=== PATIENT | male | born 1995 | race Hispanic/Latino ===

== ENCOUNTER 2022-10-18 18:50 | Emergency (ER) | payer MEDICAID ==
[~2022-10-18] VITALS: Ht 188 cm; Wt 74.4 kg
[2022-10-18] MEDS ORDERED: IBUPROFEN 600 MG TABLET PO ONE (19:30)
[2022-10-18] MEDS ORDERED: IBUP-2070 PO (20:54)
[2022-10-18] MEDS ORDERED: CYCL10TA16 PO (20:54)
[2022-10-18 21:30] VITALS: BP 128/74
== END 2022-10-18 21:39 | disposition home or self-care (01) ==
LOC: EDH 18:50
DX: R07.89 Other chest pain (principal); J45.909 Unspecified asthma, uncomplicated; F32.A Depression, unspecified
CPT/HCPCS: 71100

== ENCOUNTER 2022-11-14 23:11 | Emergency (ER) | payer MEDICAID ==
[~2022-11-14] VITALS: Ht 188 cm; Wt 74.8 kg
[~2022-11-14 23:11] MED LIST: CYCL10TA16 PO; IBUP-2070 PO
[2022-11-14 23:55] LABS: BASOPHILS % (AUTO) 0.3 % (0.0-5.0); EOSINOPHILS % (AUTO) 0.8 % (0.0-8.0); HEMATOCRIT 37.1 % (42-54); LYMPHOCYTES % (AUTO) 18.9 % (21.0-51.0); MEAN CORPUSCULAR HGB CONC 33.7 g/dL (32.0-36.0); MEAN CORPUSCULAR VOLUME 89.2 fL (79-99); MONOCYTES % (AUTO) 9.3 % (3.0-13.0); NEUTROPHILS % (AUTO) 70.5 % (40.0-77.0); PLATELET COUNT (AUTO) 166 K/uL (130-400); RED BLOOD CELL COUNT(AUTO) 4.16 MIL/uL (4.50-6.20); RED CELL DISTRIBUTION WIDTH 12.2 % (11.0-15.5); WHITE BLOOD COUNT (AUTO) 5.9 K/uL (4.8-10.8)
[2022-11-15] MEDS ORDERED: ACETAMINOPHEN 325 MG TAB PO ONE
[2022-11-15 00:09] LABS: CREATININE 0.8 mg/dL (0.5-1.5); POTASSIUM 3.5 mmol/L (3.5-5.1)
[2022-11-15 00:14] LABS: ALBUMIN 3.7 g/dL (3.5-5.0); TOTAL PROTEIN, SERUM 7.1 g/dL (6.0-8.3)
[2022-11-15] MEDS ORDERED: 0.9%NACL 1000ML 2,000 ML IV ONE (01:00)
[2022-11-15 06:00] VITALS: BP 132/69
== END 2022-11-15 06:17 | disposition home or self-care (01) ==
LOC: EDH 23:11
DX: R42 Dizziness and giddiness (principal); E86.0 Dehydration; F41.9 Anxiety disorder, unspecified; J45.909 Unspecified asthma, uncomplicated; Z20.822 Contact with and (suspected) exposure to COVID-19
CPT/HCPCS: 99284; 71045; 87635; 82550; 84484; 80053; 85025; 85378; 87804 ×2; 36415 ×2; 96360; C9803; J7030

== ENCOUNTER 2022-11-17 02:24 | Emergency (ER) | payer MEDICAID ==
[2022-11-17 03:22] LABS: APPEARANCE,URINE CLEAR (CLEAR); BILIRUBIN,URINE NEGATIVE (NEGATIVE); COLOR,URINE COLORLESS (YELLOW); GLUCOSE, URINE (UA) NEGATIVE (NEGATIVE); KETONES,URINE NEGATIVE (NEGATIVE); LEUKOCYTE ESTERASE ,URINE NEGATIVE Leu/uL (NEGATIVE); NITRATE,URINE NEGATIVE (NEGATIVE); OCCULT BLOOD,URINE NEGATIVE (NEGATIVE); PROTEIN,URINE NEGATIVE (NEGATIVE); UROBILINOGEN,URINE 0.2 mg/dL (0.2-1.0)
[2022-11-17 03:23] LABS: CARBON DIOXIDE 30 mmol/L (21-32); CHLORIDE 105 mmol/L (101-111); CREATININE 0.9 mg/dL (0.5-1.5); GLOMERULAR FILTR. RATE CALC 122 mL/min (>90); GLUCOSE,RANDOM 90 mg/dL (70-105); POTASSIUM 3.8 mmol/L (3.5-5.1); SODIUM SERUM 142 mmol/L (136-145); UREA NITROGEN, BLOOD 8 mg/dL (7-18)
[2022-11-17 03:24] LABS: BASOPHILS % (AUTO) 1.1 % (0.0-5.0); EOSINOPHILS % (AUTO) 3.7 % (0.0-8.0); HEMATOCRIT 36.2 % (42-54); LYMPHOCYTES % (AUTO) 31.3 % (21.0-51.0); MEAN CORPUSCULAR HGB CONC 33.7 g/dL (32.0-36.0); MEAN CORPUSCULAR VOLUME 88.9 fL (79-99); MONOCYTES % (AUTO) 9.4 % (3.0-13.0); NEUTROPHILS % (AUTO) 54.2 % (40.0-77.0); PLATELET COUNT (AUTO) 166 K/uL (130-400); RED BLOOD CELL COUNT(AUTO) 4.07 MIL/uL (4.50-6.20); RED CELL DISTRIBUTION WIDTH 12.2 % (11.0-15.5); WHITE BLOOD COUNT (AUTO) 3.5 K/uL (4.8-10.8)
[2022-11-17 03:27] LABS: ALANINE AMINOTRANSFERASE 21 U/L (12-78); ALBUMIN 3.4 g/dL (3.5-5.0); ASPARTATE AMINOTRANSFERASE 10 U/L (10-37); TOTAL PROTEIN, SERUM 6.6 g/dL (6.0-8.3)
[2022-11-17 03:31] LABS: AMPHET/METH SCREEN,URINE NEGATIVE (NEGATIVE); BARBITURATE SCREEN, URINE NEGATIVE (NEGATIVE); BENZODIAZEPINES SCREEN,URINE NEGATIVE (NEGATIVE); CANNABINOID SCREEN,URINE NEGATIVE (NEGATIVE); COCAINE SCREEN,URINE NEGATIVE (NEGATIVE); OPIATE SCREEN,URINE NEGATIVE (NEGATIVE); PHENCYCLIDINE SCREEN,URINE NEGATIVE (NEGATIVE)
[2022-11-17 03:38] LABS: WBC,URINE 0-1 /HPF (0-1)
[2022-11-17 03:50] LABS: INR 1.02 (0.85-1.15); PROTHROMBIN TIME 11.8 SEC (9.6-11.6)
[2022-11-17 03:51] LABS: PARTIAL THROMBOPLASTIN TIME 31.6 SEC (26.3-35.5)
[2022-11-17 06:24] VITALS: BP 123/88
== END 2022-11-17 06:31 | disposition home or self-care (01) ==
LOC: EDH 02:24
DX: R42 Dizziness and giddiness (principal); F41.9 Anxiety disorder, unspecified; J45.909 Unspecified asthma, uncomplicated; F32.A Depression, unspecified
CPT/HCPCS: 36415; 70450; 80053; 80305; 81001; 85025; 85610; 85730

== ENCOUNTER 2022-11-21 21:46 | Emergency (ER) | payer MEDICAID ==
[~2022-11-21] VITALS: Ht 185.4 cm; Wt 79.4 kg
[2022-11-21 23:53] VITALS: BP 115/62
[2022-11-22] MEDS ORDERED: METOCLOPRAMIDE 10 MG TABLET PO ONE
[2022-11-22] MEDS ORDERED: PANTOPRAZOLE 40 MG TAB DR PO SCH
[2022-11-22] MEDS ORDERED: METO10TA41 PO (00:01)
[2022-11-22] MEDS ORDERED: PANT40TA55 PO (00:01)
[2022-11-22] MEDS ORDERED: METOCLOPRAMIDE 10 MG TABLET ONE (00:06)
[2022-11-22] MEDS ORDERED: PANTOPRAZOLE 40 MG TAB DR ONE (00:06)
== END 2022-11-22 00:09 | disposition home or self-care (01) ==
LOC: EDH 21:46
DX: K29.70 Gastritis, unspecified, without bleeding (principal); J45.909 Unspecified asthma, uncomplicated; F32.A Depression, unspecified; F41.9 Anxiety disorder, unspecified; Z20.822 Contact with and (suspected) exposure to COVID-19
CPT/HCPCS: 99283; 87635; 87804 ×2; C9803

== ENCOUNTER 2022-11-25 12:07 | Emergency (ER) | payer MEDICAID ==
[~2022-11-25] VITALS: Ht 188 cm; Wt 71.7 kg
[~2022-11-25 12:07] MED LIST changes: +METO10TA41 PO; +PANT40TA55 PO
[2022-11-25 12:08] VITALS: BP 123/91
[2022-11-25 12:43] LABS: BASOPHILS % (AUTO) 0.7 % (0.0-5.0); EOSINOPHILS % (AUTO) 0.8 % (0.0-8.0); HEMATOCRIT 40.2 % (42-54); LYMPHOCYTES % (AUTO) 21.1 % (21.0-51.0); MEAN CORPUSCULAR HEMOGLOBIN 30.1 pg (27.0-33.0); MEAN CORPUSCULAR HGB CONC 33.8 g/dL (32.0-36.0); MEAN CORPUSCULAR VOLUME 88.9 fL (79-99); MONOCYTES % (AUTO) 6.4 % (3.0-13.0); NEUTROPHILS % (AUTO) 70.2 % (40.0-77.0); PLATELET COUNT (AUTO) 181 K/uL (130-400); RED BLOOD CELL COUNT(AUTO) 4.52 MIL/uL (4.50-6.20); RED CELL DISTRIBUTION WIDTH 12.2 % (11.0-15.5); WHITE BLOOD COUNT (AUTO) 6.1 K/uL (4.8-10.8)
[2022-11-25 12:55] LABS: CREATININE 0.8 mg/dL (0.5-1.5); POTASSIUM 4.1 mmol/L (3.5-5.1)
[2022-11-25 13:00] LABS: ALBUMIN 3.9 g/dL (3.5-5.0); TOTAL PROTEIN, SERUM 7.2 g/dL (6.0-8.3)
[2022-11-25 13:22] LABS: APPEARANCE,URINE CLEAR (CLEAR); BILIRUBIN,URINE NEGATIVE (NEGATIVE); COLOR,URINE COLORLESS (YELLOW); GLUCOSE, URINE (UA) NEGATIVE (NEGATIVE); KETONES,URINE NEGATIVE (NEGATIVE); LEUKOCYTE ESTERASE ,URINE NEGATIVE Leu/uL (NEGATIVE); NITRATE,URINE NEGATIVE (NEGATIVE); OCCULT BLOOD,URINE NEGATIVE (NEGATIVE); PROTEIN,URINE NEGATIVE (NEGATIVE); UROBILINOGEN,URINE 0.2 mg/dL (0.2-1.0)
[2022-11-25] MEDS ORDERED: ONDA4TAB10 PO (13:42)
[2022-12-02] MEDS ORDERED: ONDA4TAB10 PO (05:32)
== END 2022-11-25 14:03 | disposition home or self-care (01) ==
LOC: EDH 12:07
DX: R11.2 Nausea with vomiting, unspecified (principal); T45.0X5A Adverse effect of antiallergic and antiemetic drugs, initial encounter; J45.909 Unspecified asthma, uncomplicated; Y92.89 Other specified places as the place of occurrence of the external cause
CPT/HCPCS: 36415; 80053; 81003; 85025

== ENCOUNTER 2022-12-04 14:13 | Emergency (ER) | payer MEDICAID ==
[~2022-12-04] VITALS: Ht 180.3 cm; Wt 83.9 kg
[~2022-12-04 14:13] MED LIST changes: +ONDA4TAB10 PO
[2022-12-04 14:56] LABS: APPEARANCE,URINE CLEAR (CLEAR); BILIRUBIN,URINE NEGATIVE (NEGATIVE); COLOR,URINE LIGHT-YELLOW (YELLOW); GLUCOSE, URINE (UA) NEGATIVE (NEGATIVE); KETONES,URINE NEGATIVE (NEGATIVE); LEUKOCYTE ESTERASE ,URINE NEGATIVE Leu/uL (NEGATIVE); NITRATE,URINE NEGATIVE (NEGATIVE); OCCULT BLOOD,URINE NEGATIVE (NEGATIVE); PROTEIN,URINE NEGATIVE (NEGATIVE); UROBILINOGEN,URINE 0.2 mg/dL (0.2-1.0)
[2022-12-04 15:02] LABS: AMPHET/METH SCREEN,URINE NEGATIVE (NEGATIVE); BARBITURATE SCREEN, URINE NEGATIVE (NEGATIVE); BENZODIAZEPINES SCREEN,URINE NEGATIVE (NEGATIVE); CANNABINOID SCREEN,URINE NEGATIVE (NEGATIVE); COCAINE SCREEN,URINE NEGATIVE (NEGATIVE); MUCUS,URINE RARE LPF (None Seen); OPIATE SCREEN,URINE NEGATIVE (NEGATIVE); PHENCYCLIDINE SCREEN,URINE NEGATIVE (NEGATIVE); RBC,URINE 0-1 /HPF (0-1)
[2022-12-04 15:22] LABS: BASOPHILS % (AUTO) 0.5 % (0.0-5.0); EOSINOPHILS % (AUTO) 0.4 % (0.0-8.0); HEMATOCRIT 40.9 % (42-54); LYMPHOCYTES % (AUTO) 14.4 % (21.0-51.0); MEAN CORPUSCULAR HEMOGLOBIN 29.9 pg (27.0-33.0); MEAN CORPUSCULAR HGB CONC 32.8 g/dL (32.0-36.0); MEAN CORPUSCULAR VOLUME 91.3 fL (79-99); MONOCYTES % (AUTO) 5.3 % (3.0-13.0); NEUTROPHILS % (AUTO) 79.1 % (40.0-77.0); PLATELET COUNT (AUTO) 178 K/uL (130-400); RED BLOOD CELL COUNT(AUTO) 4.48 MIL/uL (4.50-6.20); WHITE BLOOD COUNT (AUTO) 7.8 K/uL (4.8-10.8)
[2022-12-04 15:32] LABS: CARBON DIOXIDE 30 mmol/L (21-32); CHLORIDE 107 mmol/L (101-111); CREATININE 0.9 mg/dL (0.5-1.5); GLOMERULAR FILTR. RATE CALC 122 mL/min (>90); GLUCOSE,RANDOM 93 mg/dL (70-105); POTASSIUM 4.1 mmol/L (3.5-5.1); SODIUM SERUM 144 mmol/L (136-145); UREA NITROGEN, BLOOD 10 mg/dL (7-18)
[2022-12-04 15:36] LABS: ALANINE AMINOTRANSFERASE 19 U/L (12-78); ASPARTATE AMINOTRANSFERASE 12 U/L (10-37); LIPASE < 50 U/L (114-286); TOTAL PROTEIN, SERUM 7.2 g/dL (6.0-8.3)
[2022-12-04] MEDS ORDERED: ONDA4TAB10 PO (18:31)
[2022-12-04 18:40] VITALS: BP 128/74
== END 2022-12-04 18:44 | disposition home or self-care (01) ==
LOC: EDH 14:13
DX: R10.13 Epigastric pain (principal); R11.0 Nausea; F41.9 Anxiety disorder, unspecified; F32.A Depression, unspecified; J45.909 Unspecified asthma, uncomplicated; Z79.899 Other long term (current) drug therapy
CPT/HCPCS: 36415; 80053; 80305; 81001; 83690; 85025

== ENCOUNTER 2022-12-13 19:21 | Emergency (ER) | payer MEDICAID ==
[~2022-12-13] VITALS: Ht 182.9 cm; Wt 75.3 kg
[~2022-12-13 19:21] MED LIST changes: +D-ME118S47 PO
[2022-12-13 20:28] VITALS: BP 132/72; PULSE 71; RESP 20
[2022-12-13] MEDS ORDERED: NAPR-1180 PO (21:22)
[2022-12-13] MEDS ORDERED: KETOROLAC 15MG/ML VIAL (15MG/ML) IM ONE (21:30)
[2022-12-14] MEDS ORDERED: CYCL5TAB PO (00:49)
== END 2022-12-13 23:20 | disposition home or self-care (01) ==
LOC: EDH 19:21
DX: S39.012A Strain of muscle, fascia and tendon of lower back, initial encounter (principal); F41.9 Anxiety disorder, unspecified; F32.A Depression, unspecified; J45.909 Unspecified asthma, uncomplicated; X58.XXXA Exposure to other specified factors, initial encounter; Y93.89 Activity, other specified; Y92.89 Other specified places as the place of occurrence of the external cause; Y99.8 Other external cause status; Z79.899 Other long term (current) drug therapy
CPT/HCPCS: 99283; 96372; J1885

== ENCOUNTER 2022-12-16 10:46 | Emergency (ER) | payer MEDICAID ==
[~2022-12-16] VITALS: Ht 185.4 cm; Wt 75.7 kg
[~2022-12-16 10:46] MED LIST changes: +CYCL5TAB PO; +NAPR-1180 PO
[2022-12-16] MEDS ORDERED: IBUPROFEN 600 MG TABLET PO ONE (11:30)
[2022-12-16 12:42] VITALS: BP 122/78; PULSE 78; RESP 18; O2SAT 98
== END 2022-12-16 12:44 | disposition home or self-care (01) ==
LOC: EDH 10:46
DX: S62.306A Unspecified fracture of fifth metacarpal bone, right hand, initial encounter for closed fracture (principal); F17.200 Nicotine dependence, unspecified, uncomplicated; Z79.899 Other long term (current) drug therapy; X58.XXXA Exposure to other specified factors, initial encounter; Y93.89 Activity, other specified; Y92.89 Other specified places as the place of occurrence of the external cause; Y99.8 Other external cause status
CPT/HCPCS: 73120

== ENCOUNTER 2022-12-20 21:15 | Emergency (ER) | payer MEDICAID ==
[~2022-12-20] VITALS: Ht 185.4 cm; Wt 75.3 kg
[2022-12-20 22:49] VITALS: BP 113/65; PULSE 62; RESP 20
== END 2022-12-21 04:46 | disposition left against medical advice (07) ==
LOC: EDH 21:15
DX: R53.1 Weakness (principal); R11.2 Nausea with vomiting, unspecified; R05.9 Cough, unspecified; Z53.21 Procedure and treatment not carried out due to patient leaving prior to being seen by health care provider
CPT/HCPCS: 99281

== ENCOUNTER 2022-12-26 18:41 | Emergency (ER) | payer MEDICAID ==
[~2022-12-26] VITALS: Ht 177.8 cm; Wt 79.4 kg
[2022-12-26 18:43] VITALS: BP 132/76; PULSE 80; RESP 16
[2022-12-26] MEDS ORDERED: 0.9%NACL 1000ML 2,000 ML IV ONE (20:00)
[2022-12-26] MEDS ORDERED: ONDANSETRON 4MG INJ IVP ONE (20:00)
[2022-12-26 20:12] LABS: BASOPHILS # (AUTO) 0.07 K/uL (0.00-0.20); BASOPHILS % (AUTO) 0.8 % (0.0-5.0); EOSINOPHILS # (AUTO) 0.03 K/uL (0.00-0.70); EOSINOPHILS % (AUTO) 0.3 % (0.0-8.0); HEMATOCRIT 45.9 % (42-54); IMMATURE GRANULOCYTE ABSOLUTE 0.03 K/uL (0-1); LYMPHOCYTES # (AUTO) 1.7 K/uL (1.0-4.8); LYMPHOCYTES % (AUTO) 18.9 % (21.0-51.0); MEAN CORPUSCULAR HEMOGLOBIN 30.1 pg (27.0-33.0); MEAN CORPUSCULAR VOLUME 88.4 fL (79-99); MONOCYTES # (AUTO) 0.7 K/uL (0.1-1.0); MONOCYTES % (AUTO) 7.7 % (3.0-13.0); NEUTROPHILS # (AUTO) 6.4 K/uL (1.8-7.7); PLATELET COUNT (AUTO) 210 K/uL (130-400); RED BLOOD CELL COUNT(AUTO) 5.19 MIL/uL (4.50-6.20); RED CELL DISTRIBUTION WIDTH 12.5 % (11.0-15.5); WHITE BLOOD COUNT (AUTO) 8.9 K/uL (4.8-10.8)
[2022-12-26 20:19] LABS: APPEARANCE,URINE CLEAR (CLEAR); BILIRUBIN,URINE NEGATIVE (NEGATIVE); COLOR,URINE YELLOW (YELLOW); GLUCOSE, URINE (UA) NEGATIVE (NEGATIVE); KETONES,URINE 5 mg/dL (NEGATIVE); LEUKOCYTE ESTERASE ,URINE NEGATIVE Leu/uL (NEGATIVE); NITRATE,URINE NEGATIVE (NEGATIVE); OCCULT BLOOD,URINE NEGATIVE (NEGATIVE); PH,URINE 5.5 (5.0-8.0); PROTEIN,URINE 50 mg/dL (NEGATIVE)
[2022-12-26 20:22] LABS: ADD UA MICROSCOPIC YES
[2022-12-26 20:35] LABS: POTASSIUM 3.9 mmol/L (3.5-5.1)
[2022-12-26 20:37] LABS: ALBUMIN 4.5 g/dL (3.5-5.0); BILIRUBIN,TOTAL 0.3 mg/dL (0.2-1.0); TOTAL PROTEIN, SERUM 8.2 g/dL (6.0-8.3)
[2022-12-26 20:50] LABS: BACTERIA,URINE FEW /HPF (None Seen); MUCUS,URINE MOD LPF (None Seen); RBC,URINE 0-1 /HPF (0-1); SQUAMOUS EPITHELIAL CELL,UR RARE /HPF (0-2)
== END 2022-12-26 21:08 | disposition home or self-care (01) ==
LOC: EDH 18:41
DX: R53.83 Other fatigue (principal); F41.9 Anxiety disorder, unspecified; F17.200 Nicotine dependence, unspecified, uncomplicated; Z79.899 Other long term (current) drug therapy; X30.XXXA Exposure to excessive natural heat, initial encounter; Y93.01 Activity, walking, marching and hiking; Y92.89 Other specified places as the place of occurrence of the external cause; Y99.8 Other external cause status
CPT/HCPCS: 99283; 96374; 96361; 80053; 83690; 85025; 81001; 36415; J7030; J2405

== ENCOUNTER 2023-01-17 23:06 | Emergency (ER) | payer MEDICAID ==
[~2023-01-17] VITALS: Ht 185.4 cm; Wt 79.4 kg
[2023-01-18 00:40] VITALS: BP 129/79; PULSE 87; RESP 18; O2SAT 98
[2023-01-18 00:48] LABS: RAPID GROUP A STREP negative (NEGATIVE)
[2023-01-18 00:54] LABS: SARS-CoV-2, RNA, NAAT NEGATIVE SARS CoV-2 (NEGATIVE)
[2023-01-18 00:58] LABS: INFLUENZA TYPE A Negative For Type A (NEGATIVE); INFLUENZA TYPE B Negative For Type B (NEGATIVE)
== END 2023-01-18 01:05 | disposition home or self-care (01) ==
LOC: EDH 23:06
DX: B34.9 Viral infection, unspecified (principal); J45.909 Unspecified asthma, uncomplicated; F32.A Depression, unspecified; F17.200 Nicotine dependence, unspecified, uncomplicated; Z79.899 Other long term (current) drug therapy; Z20.822 Contact with and (suspected) exposure to COVID-19
CPT/HCPCS: 99283; 87635; 87880; 87804 ×2; C9803

== ENCOUNTER 2023-05-07 15:24 | Emergency (ER) | payer MEDICAID ==
[~2023-05-07] VITALS: Ht 188 cm; Wt 84.4 kg
[~2023-05-07 15:24] MED LIST changes: +BROM118S48 PO; -D-ME118S47 PO
[2023-05-07 15:40] VITALS: BP 149/86; PULSE 95; RESP 18
[2023-05-07 16:09] LABS: RAPID GROUP A STREP negative (NEGATIVE)
[2023-05-07 16:14] LABS: SARS-CoV-2, RNA, NAAT NEGATIVE SARS CoV-2 (NEGATIVE)
[2023-05-07 16:19] LABS: INFLUENZA TYPE A Negative For Type A (NEGATIVE); INFLUENZA TYPE B Negative For Type B (NEGATIVE)
[2023-05-07] MEDS ORDERED: BROM118S48 PO (17:22)
[2023-05-07] MEDS ORDERED: AZIT250T9 PO (17:22)
== END 2023-05-07 17:33 | disposition home or self-care (01) ==
LOC: EDH 15:24
DX: J06.9 Acute upper respiratory infection, unspecified (principal); R09.3 Abnormal sputum; J45.909 Unspecified asthma, uncomplicated; F41.9 Anxiety disorder, unspecified; F32.A Depression, unspecified; F17.200 Nicotine dependence, unspecified, uncomplicated; Z20.822 Contact with and (suspected) exposure to COVID-19; Z79.899 Other long term (current) drug therapy; Z98.890 Other specified postprocedural states
CPT/HCPCS: 99283; 87635; 87880; 87804 ×2; C9803

== ENCOUNTER 2023-07-19 06:31 | Emergency (ER) | payer OTHER, MEDICAID ==
[~2023-07-19] VITALS: Ht 185.4 cm; Wt 95.3 kg
[~2023-07-19 06:31] MED LIST changes: +AZIT250T9 PO
[2023-07-19 08:13] VITALS: BP 129/88; PULSE 92; RESP 14; O2SAT 100
== END 2023-07-19 08:38 | disposition home or self-care (01) ==
LOC: EDH 06:31
DX: S29.012A Strain of muscle and tendon of back wall of thorax, initial encounter (principal); E11.9 Type 2 diabetes mellitus without complications; F17.200 Nicotine dependence, unspecified, uncomplicated; J45.909 Unspecified asthma, uncomplicated; Z79.899 Other long term (current) drug therapy; V89.2XXA Person injured in unspecified motor-vehicle accident, traffic, initial encounter; Y93.89 Activity, other specified; Y92.89 Other specified places as the place of occurrence of the external cause; Y99.8 Other external cause status

== ENCOUNTER 2023-08-02 18:29 | Emergency (ER) | payer MEDICAID, OTHER ==
[~2023-08-02] VITALS: Ht 185.4 cm; Wt 93.0 kg
[~2023-08-02 18:29] MED LIST changes: -BROM118S48 PO; +D-ME118S47 PO
[2023-08-02] MEDS ORDERED: CYCL5TAB PO (20:50)
[2023-08-02] MEDS ORDERED: LIDO1ADH71 TP (20:50)
[2023-08-02] MEDS ORDERED: NAPR-1023 PO (20:50)
[2023-08-02] MEDS: KETOROLAC 60 MG VIAL (30MG/ML) IM ONE (20:54)
[2023-08-02 21:30] VITALS: BP 136/88; PULSE 92; RESP 16; O2SAT 99
== END 2023-08-02 21:36 | disposition home or self-care (01) ==
LOC: EDH 18:29
DX: S39.012A Strain of muscle, fascia and tendon of lower back, initial encounter (principal); J45.909 Unspecified asthma, uncomplicated; Z79.899 Other long term (current) drug therapy; Z98.890 Other specified postprocedural states; X58.XXXA Exposure to other specified factors, initial encounter; Y93.89 Activity, other specified; Y92.89 Other specified places as the place of occurrence of the external cause; Y99.8 Other external cause status
CPT/HCPCS: 99283; 72100; 96372; J1885

== ENCOUNTER 2023-09-21 19:12 | Emergency (ER) | payer MEDICAID ==
[~2023-09-21 19:12] MED LIST changes: +BROM118S48 PO; -D-ME118S47 PO; +LIDO1ADH71 TP; +NAPR-1023 PO
[2023-09-21] MEDS ORDERED: DIPH50 PO (19:26)
[2023-09-21] MEDS ORDERED: ONDANSETRON 4MG INJ IVP ONE (19:30)
[2023-09-21] MEDS ORDERED: DiphenhydrAMINE HCL 50 MG/ML VIAL IV ONE (19:30)
[2023-09-21 19:50] VITALS: BP 137/85; PULSE 84; RESP 20; O2SAT 100
== END 2023-09-21 19:53 | disposition home or self-care (01) ==
LOC: EDH 19:12
DX: T63.441A Toxic effect of venom of bees, accidental (unintentional), initial encounter (principal); R11.0 Nausea; J45.909 Unspecified asthma, uncomplicated; F17.200 Nicotine dependence, unspecified, uncomplicated; Z79.899 Other long term (current) drug therapy

== ENCOUNTER 2023-10-11 23:16 | Emergency (ER) | payer MEDICAID ==
[~2023-10-11 23:16] MED LIST changes: +DIPH50 PO
[2023-10-11] MEDS: ONDANSETRON 4MG INJ IVP ONE (23:41)
[2023-10-11] MEDS: LACTATED RINGERS 1000ML 1,000 ML IV ONE (23:45)
[2023-10-11 23:51] LABS: BASOPHILS # (AUTO) 0.04 K/uL (0.00-0.20); BASOPHILS % (AUTO) 0.6 % (0.0-5.0); EOSINOPHILS # (AUTO) 0.14 K/uL (0.00-0.70); EOSINOPHILS % (AUTO) 2.2 % (0.0-8.0); HEMATOCRIT 40.2 % (42-54); IMMATURE GRANULOCYTE ABSOLUTE 0.02 K/uL (0-1); LYMPHOCYTES # (AUTO) 1.6 K/uL (1.0-4.8); LYMPHOCYTES % (AUTO) 25.4 % (21.0-51.0); MEAN CORPUSCULAR HGB CONC 34.3 g/dL (32.0-36.0); MEAN CORPUSCULAR VOLUME 87.4 fL (79-99); MONOCYTES # (AUTO) 0.6 K/uL (0.1-1.0); NEUTROPHILS # (AUTO) 3.9 K/uL (1.8-7.7); NEUTROPHILS % (AUTO) 61.5 % (40.0-77.0); PLATELET COUNT (AUTO) 180 K/uL (130-400); RED CELL DISTRIBUTION WIDTH 12.6 % (11.0-15.5); WHITE BLOOD COUNT (AUTO) 6.4 K/uL (4.8-10.8)
[2023-10-12 00:14] LABS: CREATININE 0.9 mg/dL (0.5-1.3)
[2023-10-12 00:18] LABS: ALBUMIN 3.7 g/dL (3.5-5.0); BILIRUBIN,TOTAL 0.2 mg/dL (0.2-1.0)
[2023-10-12] MEDS ORDERED: ONDA4TAB10 PO (00:37)
[2023-10-12 01:18] VITALS: BP 122/85; PULSE 84; RESP 18; O2SAT 98
== END 2023-10-12 01:21 | disposition home or self-care (01) ==
LOC: EDH 23:16
DX: R10.9 Unspecified abdominal pain (principal); M54.50 Low back pain, unspecified; R11.2 Nausea with vomiting, unspecified; J45.909 Unspecified asthma, uncomplicated; Z79.899 Other long term (current) drug therapy; Z98.890 Other specified postprocedural states
CPT/HCPCS: 99283; 96374; 80053; 83690; 85025; 36415; J7120; J2405

== ENCOUNTER 2023-10-24 13:49 | Emergency (ER) | payer MEDICAID ==
[~2023-10-24] VITALS: Ht 185.4 cm; Wt 95.7 kg
[~2023-10-24 13:49] MED LIST changes: +ONDA-243 PO; -ONDA4TAB10 PO
[2023-10-24 15:08] LABS: APPEARANCE,URINE CLEAR (CLEAR); BILIRUBIN,URINE NEGATIVE (NEGATIVE); COLOR,URINE LIGHT-YELLOW (YELLOW); GLUCOSE, URINE (UA) NEGATIVE (NEGATIVE); KETONES,URINE 5 mg/dL (NEGATIVE); LEUKOCYTE ESTERASE ,URINE NEGATIVE Leu/uL (NEGATIVE); NITRATE,URINE NEGATIVE (NEGATIVE); OCCULT BLOOD,URINE NEGATIVE (NEGATIVE); PROTEIN,URINE 10 mg/dL (NEGATIVE); UROBILINOGEN,URINE 0.2 mg/dL (0.2-1.0)
[2023-10-24 15:16] LABS: ADD UA MICROSCOPIC YES
[2023-10-24 15:19] LABS: MUCUS,URINE RARE LPF (None Seen); WBC,URINE 0-1 /HPF (0-1)
[2023-10-24] MEDS: LIDOCAINE HCL 2% VISCOUS 15 ML UDCUP PO ONE (15:53)
[2023-10-24] MEDS: DICYCLOMINE HCL 10 MG/5 ML ML PO ONE (15:53)
[2023-10-24] MEDS: MAG/ALUM/SIMETH 30 ML UDCUP PO ONE (15:53)
[2023-10-24 16:15] LABS: BASOPHILS # (AUTO) 0.04 K/uL (0.00-0.20); BASOPHILS % (AUTO) 0.7 % (0.0-5.0); EOSINOPHILS # (AUTO) 0.11 K/uL (0.00-0.70); EOSINOPHILS % (AUTO) 1.8 % (0.0-8.0); HEMATOCRIT 40.5 % (42-54); IMMATURE GRANULOCYTE ABSOLUTE 0.06 K/uL (0-1); LYMPHOCYTES # (AUTO) 1.6 K/uL (1.0-4.8); MEAN CORPUSCULAR HEMOGLOBIN 30.3 pg (27.0-33.0); MEAN CORPUSCULAR HGB CONC 34.8 g/dL (32.0-36.0); MEAN CORPUSCULAR VOLUME 86.9 fL (79-99); MONOCYTES # (AUTO) 0.5 K/uL (0.1-1.0); MONOCYTES % (AUTO) 7.9 % (3.0-13.0); NEUTROPHILS # (AUTO) 3.8 K/uL (1.8-7.7); NEUTROPHILS % (AUTO) 62.6 % (40.0-77.0); PLATELET COUNT (AUTO) 180 K/uL (130-400); RED BLOOD CELL COUNT(AUTO) 4.66 MIL/uL (4.50-6.20); RED CELL DISTRIBUTION WIDTH 12.3 % (11.0-15.5)
[2023-10-24 16:25] LABS: CREATININE 0.9 mg/dL (0.5-1.3); POTASSIUM 4.3 mmol/L (3.5-5.1)
[2023-10-24 16:29] LABS: ALBUMIN 3.6 g/dL (3.5-5.0); BILIRUBIN,TOTAL 0.2 mg/dL (0.2-1.0)
[2023-10-24] MEDS ORDERED: PANT20TA PO (17:53)
[2023-10-24 17:57] VITALS: BP 121/74; PULSE 85; RESP 18; O2SAT 98
== END 2023-10-24 18:02 | disposition home or self-care (01) ==
LOC: EDH 13:49
DX: K21.9 Gastro-esophageal reflux disease without esophagitis (principal)
CPT/HCPCS: 36415; 80053; 81001; 84484; 85025

== ENCOUNTER 2023-10-27 15:52 | Emergency (ER) | payer OTHER, MEDICAID ==
[~2023-10-27] VITALS: Ht 185.4 cm; Wt 95.3 kg
[~2023-10-27 15:52] MED LIST changes: +PANT20TA PO
[2023-10-27 17:09] LABS: BASOPHILS # (AUTO) 0.07 K/uL (0.00-0.20); BASOPHILS % (AUTO) 0.9 % (0.0-5.0); EOSINOPHILS # (AUTO) 0.08 K/uL (0.00-0.70); HEMATOCRIT 44.1 % (42-54); IMMATURE GRANULOCYTE ABSOLUTE 0.07 K/uL (0-1); LYMPHOCYTES # (AUTO) 1.5 K/uL (1.0-4.8); LYMPHOCYTES % (AUTO) 18.9 % (21.0-51.0); MEAN CORPUSCULAR HEMOGLOBIN 30.8 pg (27.0-33.0); MEAN CORPUSCULAR HGB CONC 34.2 g/dL (32.0-36.0); MEAN CORPUSCULAR VOLUME 89.8 fL (79-99); MONOCYTES # (AUTO) 0.7 K/uL (0.1-1.0); MONOCYTES % (AUTO) 9.2 % (3.0-13.0); NEUTROPHILS # (AUTO) 5.4 K/uL (1.8-7.7); NEUTROPHILS % (AUTO) 69.1 % (40.0-77.0); PLATELET COUNT (AUTO) 181 K/uL (130-400); RED BLOOD CELL COUNT(AUTO) 4.91 MIL/uL (4.50-6.20); RED CELL DISTRIBUTION WIDTH 12.1 % (11.0-15.5); WHITE BLOOD COUNT (AUTO) 7.8 K/uL (4.8-10.8)
[2023-10-27 17:33] LABS: POTASSIUM 4.6 mmol/L (3.5-5.1)
[2023-10-27 17:43] LABS: ALBUMIN 4.1 g/dL (3.5-5.0); BILIRUBIN,TOTAL 0.3 mg/dL (0.2-1.0); TOTAL PROTEIN, SERUM 7.7 g/dL (6.0-8.3)
[2023-10-27 19:10] VITALS: BP 142/73; PULSE 81; RESP 18; O2SAT 97
== END 2023-10-27 19:14 | disposition home or self-care (01) ==
LOC: EDH 15:52
DX: R07.89 Other chest pain (principal); F41.9 Anxiety disorder, unspecified
CPT/HCPCS: 36415; 71045; 80053; 84484; 85025; 93005

== ENCOUNTER 2023-11-16 17:41 | Emergency (ER) | payer OTHER, MEDICAID ==
[~2023-11-16] VITALS: Ht 185.4 cm; Wt 95.7 kg
[2023-11-16 18:15] LABS: BASOPHILS # (AUTO) 0.07 K/uL (0.00-0.20); BASOPHILS % (AUTO) 0.9 % (0.0-5.0); EOSINOPHILS # (AUTO) 0.15 K/uL (0.00-0.70); EOSINOPHILS % (AUTO) 1.9 % (0.0-8.0); HEMATOCRIT 42.2 % (42-54); IMMATURE GRANULOCYTE ABSOLUTE 0.02 K/uL (0-1); LYMPHOCYTES # (AUTO) 1.7 K/uL (1.0-4.8); LYMPHOCYTES % (AUTO) 21.1 % (21.0-51.0); MEAN CORPUSCULAR HEMOGLOBIN 30.5 pg (27.0-33.0); MEAN CORPUSCULAR HGB CONC 35.8 g/dL (32.0-36.0); MEAN CORPUSCULAR VOLUME 85.3 fL (79-99); MONOCYTES # (AUTO) 0.6 K/uL (0.1-1.0); MONOCYTES % (AUTO) 6.9 % (3.0-13.0); NEUTROPHILS # (AUTO) 5.5 K/uL (1.8-7.7); PLATELET COUNT (AUTO) 188 K/uL (130-400); RED BLOOD CELL COUNT(AUTO) 4.95 MIL/uL (4.50-6.20); RED CELL DISTRIBUTION WIDTH 12.4 % (11.0-15.5)
[2023-11-16 18:32] LABS: POTASSIUM 4.3 mmol/L (3.5-5.1)
[2023-11-16 18:39] LABS: BILIRUBIN,TOTAL 0.3 mg/dL (0.2-1.0); TOTAL PROTEIN, SERUM 7.5 g/dL (6.0-8.3)
[2023-11-16] MEDS: KETOROLAC 15MG/ML VIAL (15MG/ML) IV ONE (19:01)
[2023-11-16] MEDS: ONDANSETRON 4MG INJ IVP ONE (19:01)
[2023-11-16] MEDS ORDERED: FAMO-136 PO (19:02)
[2023-11-16] MEDS ORDERED: KETO10TA2 PO (19:02)
[2023-11-16] MEDS ORDERED: CYCL10TA16 PO (19:02)
[2023-11-16] MEDS ORDERED: ONDA-243 PO (19:02)
[2023-11-16 19:27] VITALS: BP 122/73; PULSE 76; RESP 18; O2SAT 98
[2023-11-16 19:27] LABS: APPEARANCE,URINE CLEAR (CLEAR); BILIRUBIN,URINE NEGATIVE (NEGATIVE); COLOR,URINE LIGHT-YELLOW (YELLOW); GLUCOSE, URINE (UA) NEGATIVE (NEGATIVE); KETONES,URINE NEGATIVE (NEGATIVE); LEUKOCYTE ESTERASE ,URINE NEGATIVE Leu/uL (NEGATIVE); NITRATE,URINE NEGATIVE (NEGATIVE); OCCULT BLOOD,URINE NEGATIVE (NEGATIVE); PH,URINE 6.5 (5.0-8.0); PROTEIN,URINE NEGATIVE (NEGATIVE); UROBILINOGEN,URINE 0.2 mg/dL (0.2-1.0)
[2023-11-16 19:37] LABS: ADD UA MICROSCOPIC YES
[2023-11-16 19:41] LABS: MUCUS,URINE RARE LPF (None Seen); RBC,URINE 0-1 /HPF (0-1)
== END 2023-11-16 19:31 | disposition home or self-care (01) ==
LOC: EDH 17:41
DX: R10.9 Unspecified abdominal pain (principal); R11.0 Nausea; F41.9 Anxiety disorder, unspecified; F32.A Depression, unspecified; F17.200 Nicotine dependence, unspecified, uncomplicated; Z79.899 Other long term (current) drug therapy; Z79.2 Long term (current) use of antibiotics
CPT/HCPCS: 99285; 74176; 96374; 96375; 80053; 85025; 81001; 36415; J2405; J1885

== ENCOUNTER 2023-12-12 20:03 | Emergency (ER) | payer OTHER, MEDICAID ==
[~2023-12-12 20:03] MED LIST changes: +FAMO-136 PO; +KETO10TA2 PO
[2023-12-12 20:42] LABS: BASOPHILS # (AUTO) 0.05 K/uL (0.00-0.20); BASOPHILS % (AUTO) 0.7 % (0.0-5.0); EOSINOPHILS # (AUTO) 0.06 K/uL (0.00-0.70); EOSINOPHILS % (AUTO) 0.9 % (0.0-8.0); HEMATOCRIT 41.8 % (42-54); IMMATURE GRANULOCYTE ABSOLUTE 0.01 K/uL (0-1); LYMPHOCYTES # (AUTO) 1.4 K/uL (1.0-4.8); LYMPHOCYTES % (AUTO) 20.4 % (21.0-51.0); MEAN CORPUSCULAR HEMOGLOBIN 30.2 pg (27.0-33.0); MEAN CORPUSCULAR HGB CONC 35.9 g/dL (32.0-36.0); MEAN CORPUSCULAR VOLUME 84.3 fL (79-99); MONOCYTES # (AUTO) 0.5 K/uL (0.1-1.0); MONOCYTES % (AUTO) 6.6 % (3.0-13.0); NEUTROPHILS % (AUTO) 71.3 % (40.0-77.0); PLATELET COUNT (AUTO) 196 K/uL (130-400); RED BLOOD CELL COUNT(AUTO) 4.96 MIL/uL (4.50-6.20); RED CELL DISTRIBUTION WIDTH 11.9 % (11.0-15.5)
[2023-12-12 20:46] LABS: SARS-CoV-2, RNA, NAAT NEGATIVE SARS CoV-2 (NEGATIVE)
[2023-12-12] MEDS: 0.9%NACL 1000ML 1,000 ML IV ONE (20:46)
[2023-12-12 20:47] LABS: RAPID GROUP A STREP negative (NEGATIVE)
[2023-12-12 20:57] LABS: INFLUENZA TYPE A Negative For Type A (NEGATIVE); INFLUENZA TYPE B Negative For Type B (NEGATIVE)
[2023-12-12 21:00] LABS: POTASSIUM 3.7 mmol/L (3.5-5.1)
[2023-12-12 21:05] LABS: ALBUMIN 4.1 g/dL (3.5-5.0); BILIRUBIN,TOTAL 0.5 mg/dL (0.2-1.0); TOTAL PROTEIN, SERUM 7.8 g/dL (6.0-8.3)
[2023-12-12 21:29] LABS: ADD UA MICROSCOPIC YES; APPEARANCE,URINE CLEAR (CLEAR); BILIRUBIN,URINE NEGATIVE (NEGATIVE); COLOR,URINE YELLOW (YELLOW); GLUCOSE, URINE (UA) NEGATIVE (NEGATIVE); KETONES,URINE 20 mg/dL (NEGATIVE); LEUKOCYTE ESTERASE ,URINE NEGATIVE Leu/uL (NEGATIVE); NITRATE,URINE NEGATIVE (NEGATIVE); OCCULT BLOOD,URINE NEGATIVE (NEGATIVE); PH,URINE 5.5 (5.0-8.0); PROTEIN,URINE 30 mg/dL (NEGATIVE); UROBILINOGEN,URINE 0.2 mg/dL (0.2-1.0)
[2023-12-12 21:33] LABS: MUCUS,URINE FEW LPF (None Seen); OTHER CASTS, URINE 1 /LPF (None Seen); RBC,URINE 0-1 /HPF (0-1); SQUAMOUS EPITHELIAL CELL,UR RARE /HPF (0-2)
[2023-12-12] MEDS: LEVETIRACETAM 500 MG/5 ML SD VIAL IV SCH (23:09)
[2023-12-12 23:13] VITALS: BP 136/66; PULSE 90; RESP 18; O2SAT 98
== END 2023-12-12 23:40 | disposition home or self-care (01) ==
LOC: EDH 20:03
DX: R42 Dizziness and giddiness (principal); R11.0 Nausea; F41.9 Anxiety disorder, unspecified; F32.A Depression, unspecified; R56.9 Unspecified convulsions; Z20.822 Contact with and (suspected) exposure to COVID-19; Z79.899 Other long term (current) drug therapy; Z98.890 Other specified postprocedural states; W18.39XA Other fall on same level, initial encounter; Y93.89 Activity, other specified; Y92.89 Other specified places as the place of occurrence of the external cause; Y99.8 Other external cause status
CPT/HCPCS: 99285; 96374; 70450; 96361; 87635; 80053; 83690; 85025; 87880; 87804 ×2; 83605; 81001; 36415; 93005; J1953; J7030

== ENCOUNTER 2023-12-27 20:08 | Emergency (ER) | payer OTHER, MEDICAID ==
[~2023-12-27] VITALS: Ht 185.4 cm; Wt 88.5 kg
[2023-12-27] MEDS: SOLU-MEDROL 125MG VIAL IVP ONE (21:13)
[2023-12-27] MEDS: ALBUTEROL 0.083% 2.5 MG/3 ML INH IH ONE (21:14)
[2023-12-27 21:18] VITALS: PULSE 69; RESP 18
[2023-12-27 21:50] LABS: COVID19 (SARS ANTIGEN RAPID) PRESUMPTIVE NEGATIVE (NEGATIVE); RAPID GROUP A STREP positive (NEGATIVE)
[2023-12-27 22:01] LABS: INFLUENZA TYPE A Negative For Type A (NEGATIVE); INFLUENZA TYPE B Negative For Type B (NEGATIVE)
[2023-12-27] MEDS ORDERED: AMOX1TAB16 PO (22:05)
[2023-12-27] MEDS ORDERED: METH4TAB3 PO (22:05)
[2023-12-27] MEDS: AMOX/CLAV 875/125MG TAB PO ONE (22:23)
[2023-12-27 22:33] VITALS: BP 124/76; PULSE 74; RESP 18; O2SAT 98
== END 2023-12-27 22:34 | disposition home or self-care (01) ==
LOC: EDH 20:08
DX: J02.0 Streptococcal pharyngitis (principal); R05.9 Cough, unspecified; Z20.822 Contact with and (suspected) exposure to COVID-19
CPT/HCPCS: 99284; 96374; 71045; 87426; 87880; 87804 ×2; 94640; J2919

== ENCOUNTER 2024-01-09 22:05 | Emergency (ER) | payer OTHER, MEDICAID ==
[~2024-01-09] VITALS: Ht 185.4 cm; Wt 88.5 kg
[~2024-01-09 22:05] MED LIST changes: +AMOX1TAB16 PO; +METH4TAB3 PO
[2024-01-10 06:26] VITALS: BP 120/72; PULSE 76; RESP 14; O2SAT 98
== END 2024-01-10 06:50 | disposition home or self-care (01) ==
LOC: EDH 22:05
DX: S09.90XA Unspecified injury of head, initial encounter (principal); F41.1 Generalized anxiety disorder; J45.909 Unspecified asthma, uncomplicated; F17.200 Nicotine dependence, unspecified, uncomplicated; Z79.899 Other long term (current) drug therapy; Y04.2XXA Assault by strike against or bumped into by another person, initial encounter; Y93.89 Activity, other specified; Y92.89 Other specified places as the place of occurrence of the external cause; Y99.8 Other external cause status
CPT/HCPCS: 70450

== ENCOUNTER 2024-01-16 22:01 | Emergency (ER) | payer OTHER, MEDICAID ==
[~2024-01-16] VITALS: Ht 182.9 cm; Wt 88.5 kg
[2024-01-16 23:13] LABS: SARS-CoV-2, RNA, NAAT NEGATIVE SARS CoV-2 (NEGATIVE)
[2024-01-16] MEDS: acetaMINOPHEN 500 MG TABLET PO ONE (23:30)
[2024-01-16] MEDS ORDERED: KETO10TA2 PO (23:31)
[2024-01-16 23:33] VITALS: BP 117/74; PULSE 88; RESP 20; O2SAT 97
== END 2024-01-16 23:37 | disposition home or self-care (01) ==
LOC: EDH 22:01
DX: S50.02XA Contusion of left elbow, initial encounter (principal); F41.9 Anxiety disorder, unspecified; F32.A Depression, unspecified; J45.909 Unspecified asthma, uncomplicated; Z79.899 Other long term (current) drug therapy; Y93.89 Activity, other specified; W18.39XA Other fall on same level, initial encounter; Y92.89 Other specified places as the place of occurrence of the external cause; Y99.8 Other external cause status
CPT/HCPCS: 73080; 73120; 87635

== ENCOUNTER 2024-02-13 21:11 | Emergency (ER) | payer OTHER, MEDICAID ==
[~2024-02-13] VITALS: Ht 175.3 cm; Wt 18.1 kg
[~2024-02-13 21:11] MED LIST changes: -CYCL5TAB PO; +CYCL5TAB3 PO
[2024-02-13 21:42] LABS: BASOPHILS # (AUTO) 0.04 K/uL (0.00-0.20); BASOPHILS % (AUTO) 0.6 % (0.0-5.0); EOSINOPHILS # (AUTO) 0.07 K/uL (0.00-0.70); EOSINOPHILS % (AUTO) 1.1 % (0.0-8.0); HEMATOCRIT 39.9 % (42-54); IMMATURE GRANULOCYTE ABSOLUTE 0.02 K/uL (0-1); LYMPHOCYTES # (AUTO) 1.6 K/uL (1.0-4.8); LYMPHOCYTES % (AUTO) 25.5 % (21.0-51.0); MEAN CORPUSCULAR HEMOGLOBIN 30.2 pg (27.0-33.0); MEAN CORPUSCULAR HGB CONC 34.3 g/dL (32.0-36.0); MEAN CORPUSCULAR VOLUME 87.9 fL (79-99); MONOCYTES # (AUTO) 0.5 K/uL (0.1-1.0); MONOCYTES % (AUTO) 8.4 % (3.0-13.0); NEUTROPHILS # (AUTO) 4.1 K/uL (1.8-7.7); NEUTROPHILS % (AUTO) 64.1 % (40.0-77.0); PLATELET COUNT (AUTO) 178 K/uL (130-400); RED BLOOD CELL COUNT(AUTO) 4.54 MIL/uL (4.50-6.20); RED CELL DISTRIBUTION WIDTH 12.3 % (11.0-15.5); WHITE BLOOD COUNT (AUTO) 6.3 K/uL (4.8-10.8)
[2024-02-13 21:48] LABS: CREATININE 0.9 mg/dL (0.5-1.3); POTASSIUM 3.6 mmol/L (3.5-5.1)
[2024-02-13 22:17] VITALS: BP 146/68; PULSE 86; RESP 18; TEMP 98.4; O2SAT 98
--- NOTE | 2024-02-13 22:41 | HMCIMG ---
CT ABDOMEN/PELVIS W/O CONTRAST HISTORY: Left lower abdominal pain COMPARISON: None TECHNIQUE: Multiple sequential axial images of the abdomen and pelvis were obtained from the dome of the diaphragm through symphysis pubis. Patient was not given contrast through intravenous route. Oral contrast was not given. FINDINGS: No pleural effusion is seen bilaterally. There is no evidence of parenchymal disease or pulmonary nodule of the visualized lower lungs. Degenerative changes of the thoracolumbar spine are present. The heart is not enlarged. The liver, spleen, adrenal glands and pancreas are unremarkable. There is no evidence of hydronephrosis bilaterally. There is right renal cyst measuring 18.3 mm No evidence of renal stone is seen. Fecal material is seen in the colon. There are normal size retroperitoneal and mesenteric lymph nodes. No ascites is seen. No CT evidence of acute appendicitis is seen. Pelvic sidewalls are symmetric bilaterally. Bladder is poorly distended with apparent bladder wall thickening. IMPRESSION: 1. No acute findings. CT was performed with one or more following dose reduction techniques: automated exposure control, adjustment of the mA and kv according to patient's size, or use of a iterative reconstruction technique.
[2024-02-13 22:42] LABS: APPEARANCE,URINE CLEAR (CLEAR); BILIRUBIN,URINE NEGATIVE (NEGATIVE); COLOR,URINE LIGHT-YELLOW (YELLOW); GLUCOSE, URINE (UA) NEGATIVE (NEGATIVE); KETONES,URINE NEGATIVE (NEGATIVE); LEUKOCYTE ESTERASE ,URINE NEGATIVE Leu/uL (NEGATIVE); NITRATE,URINE NEGATIVE (NEGATIVE); OCCULT BLOOD,URINE NEGATIVE (NEGATIVE); PROTEIN,URINE NEGATIVE (NEGATIVE); UROBILINOGEN,URINE 0.2 mg/dL (0.2-1.0)
[2024-02-13 22:44] LABS: MUCUS,URINE RARE LPF (None Seen); WBC,URINE 0-1 /HPF (0-1)
--- NOTE | 2024-02-13 22:48 | ERN ---
General Chief Complaint: Abdominal Pain Stated Complaint: ABDOMINAL PAIN Time Seen by MD: 21:16 Source: patient History of Present Illness Initial Comments Patient is a 28-year-old male coming in to be evaluated for lower left quadrant pain. Patient states that the pain that began earlier today quantifies the pain at 10/10 in his states it was sharp in nature. No fever no chills. Mild nauseousness no vomiting. Allergies: Coded Allergies: No Known Allergies (Unverified Allergy, Unknown, 10/18/22) Home Meds Active Scripts Ketorolac Tromethamine (Ketorolac Tromethamine) 10 Mg Tablet, 10 MG PO BID for 5 Days, #10 TAB Prov:BARI AG PA 01/16/24 Methylprednisolone (Medrol) 4 Mg Tab.ds.pk, 4 MG PO AD, #1 UNIT Prov:HERMINIO WILKINS NP 12/27/23 Amoxicillin/Potassium Clav (Amox Tr-K Clv 875-125 mg Tab) 875 Mg-125 Mg Tablet, 1 EACH PO BID for 7 Days, #14 TAB 0 Refills Prov:HERMINIO WILKINS NP 12/27/23 Ondansetron (Ondansetron Odt) 4 Mg Tab.rapdis, 4 MG PO Q6HPRN PRN for nausea, #16 TAB 0 Refills Prov:RIGO WILLISP 12/10/23 Famotidine (Pepcid) 20 Mg Tablet, 20 MG PO BID for 14 Days, #28 TAB 0 Refills Prov:ABNER MURRELL DO 11/16/23 Ondansetron (Ondansetron Odt) 4 Mg Tab.rapdis, 4 MG PO TID PRN for nausea/vomiting for 7 Days, #10 TAB 0 Refills Prov:ABNER MURRELL DO 11/16/23 Ketorolac Tromethamine (Ketorolac Tromethamine) 10 Mg Tablet, 10 MG PO Q6HPRN PRN for PAIN for 7 Days, #28 TAB Prov:ABNER MURRELL DO 11/16/23 Cyclobenzaprine HCl (Flexeril) 10 Mg Tab, 10 MG PO TID PRN for muscle spasm for 7 Days, #21 TAB 0 Refills Prov:ABNER MURRELL DO 11/16/23 Pantoprazole Sodium (Protonix) 20 Mg Tablet.dr, 20 MG PO DAILY, #7 TAB Prov:ALMERAZ,EDUARD PA 10/24/23 Ondansetron (Ondansetron Odt) 4 Mg Tab.rapdis, 4 MG PO TID for Vomiting, #10 TAB Prov:MARAINO RIOS DO 10/12/23 Diphenhydramine HCl (Benadryl) 50 Mg Cap, 50 MG PO Q6H for itching/rash, #20 CAP 0 Refills Prov:RIGO WILLIS [employer] 09/21/23 Lidocaine (Lidocaine Pain Relief) 4 % Adh..patch, 1 EACH TP DAILY for 5 Days, #5 ADH.PATCH Prov:HUNTER MARIA 08/02/23 Naproxen (Naproxen) 500 Mg Tablet, 500 MG PO BID for 5 Days, #10 TAB Prov:HUNTER MARIA 08/02/23 Cyclobenzaprine HCl (Cyclobenzaprine HCl) 5 Mg Tablet, 5 MG PO DAILYDINNER for 5 Days, #5 TAB Prov:HUNTER MARIA 08/02/23 Azithromycin (Azithromycin) 250 Mg Tablet, 250 MG PO DAILY, #6 TAB Take 2 now then 1 daily until complete. Prov:SMITH MCMAHON V [facility] 05/07/23 D-Methorphan Hb/P-Epd HCl/Bpm (Bromfed Dm Cough Syrup) 2 Mg-30 Mg-10 Mg/5 Ml Syrup, 10 ML PO Q4HPRN PRN for COUGH for 10 Days, #100 ML Prov:SMITH MCMAHON V [facility] 05/07/23 Cyclobenzaprine HCl (Cyclobenzaprine HCl) 5 Mg Tablet, 5 MG PO DAILYDINNER, #15 TAB Prov:CHELY RAMIREZ [facility] 12/14/22 Naproxen (Naprosyn) 500 Mg Tablet, 500 MG PO BIDPC for 10 Days, #20 TAB 0 Refills Prov:CHELY RAMIREZ [facility] 12/13/22 D-Methorphan Hb/P-Epd HCl/Bpm (Bromfed Dm Cough Syrup) 118 Ml Syrup, 10 ML PO Q6HPRN PRN for cough for 5 Days, #200 ML Prov:NOBLE MCCLOUD [facility] 12/10/22 Ondansetron (Ondansetron Odt) 4 Mg Tab.rapdis, 4 MG PO Q6HPRN PRN for nausea/vomiting, #10 TAB 0 Refills Prov:ROCÍO MINAYA NP 12/04/22 Ondansetron (Ondansetron Odt) 4 Mg Tab.rapdis, 4 MG PO TID, #8 TAB Prov:ANNA COELHO MD 12/02/22 Ondansetron (Ondansetron Odt) 4 Mg Tab.rapdis, 4 MG PO TID for 2 Days, #8 TAB Prov:SMITH MCMAHON 11/25/22 Metoclopramide HCl (Reglan 10 mg Tab) 10 Mg Tablet, 10 MG PO Q6HPRN PRN for naus ea, #30 TAB 0 Refills Prov:ROCÍO MINAYA NP 11/22/22 Pantoprazole Sodium (Protonix) 40 Mg Ectab, 40 MG PO DAILY, #14 TAB.EC 0 Refills Prov:ROCÍO MINAYA NP 11/22/22 Cyclobenzaprine HCl (Flexeril) 10 Mg Tab, 10 MG PO TID for 3 Days, #9 TAB Prov:SMITH MCMAHON [facility] 10/18/22 Ibuprofen (Ibuprofen) 600 Mg Tablet, 600 MG PO Q6H PRN for PAIN, #30 TAB Prov:SMITH MCMAHON [facility] 10/18/22 Past Medical History Past Medical History: Anxiety Medical History Other: ADHD Past Surgical History: None Family History Family History: HTN Social History Social History: Smokers, Lives with family ROS Dictation CONSTITUTIONAL: No chills, no fever, no weakness, no diaphoresis, no malaise. HEAD/FACE: No signs of trauma. EENT: No eye pain, no blurred vision, no tearing, no double vision, no ear pain, no ear discharge, no nose pain, no nasal congestion, no throat pain, no throat swelling, no mouth pain. RESPIRATORY: No cough, no orthopnea, no SOB, no stridor, no wheezing. CARDIOVASCULAR: No chest pain, no edema, no palpitations, no syncope. GASTROINTESTINAL/ABDOMINAL: No abdominal pain, no constipation, no diarrhea, no nausea, no vomiting. GENITOURINARY: No abnormal discharge, no dysuria, no frequent urination, no hematuria. No complaints of pain in the genitals. MUSCULOSKELETAL: No back pain, no gout, no joint pain, no joint swelling, no muscle pain, no muscle stiffness, no neck pain. INTEGUMENTARY: No change in color, no change in hair/nails, no dryness, no lesion, no lumps, no rash. NEUROLOGICAL/PSYCH: No anxiety, not depressed, no emotional problem, no headache, no numbness, no pre-existing deficit, no history of seizures, no tremors, no weakness. HEMATOLOGIC/LYMPHATIC: Not anemic, no history of blood clots, no apparent bleeding, no bruising, glands not swollen. All Systems Negative, Except as Noted. Physical Exam Physical Exam Dictation VITAL SIGNS: Reviewed. GENERAL APPEARANCE: Alert, oriented x3, no acute distress, obese. HEAD AND FACE: Non-traumatic. EYES: PERRL, pink conjunctivas, eyelid no trauma, anterior chamber clear. EARS: Pinnas intact and no signs of trauma or erythema. Ear canals clear and no discharge. TMs no erythema. NOSE: No discharge, no bleeding. OROPHARYNX: Mouth normal, teeth no caries, tongue pink. Pharynx clear, no erythema. Tonsils no exudates, no abscesses noted. Mucous membrane moist. NECK: Supple, non-tender, no thyromegaly, no masses, no JVD, no bruits. BREAST: Deferred. CHEST: No tenderness, no crepitus, no paradoxical movement, no retractions. LUNGS: Clear, well-ventilated, symmetric, no rales, no wheezing, no rhonchi, no stridor, good breath sounds bilaterally. HEART: Regular rate, regular rhythm, no murmur, no gallops. VASCULAR: No peripheral edema. ABDOMEN: Soft, positive bowel sounds, left lower abdominal pain reproducible on palpation RECTAL: Deferred. GENITAL: Deferred. NEUROLOGICAL: Normal speech, gross motor function intact, gross sensory function intact. MUSCULOSKELETAL: Neck nontender, full range of motion, back nontender, full range of motion. EXTREMITIES: Nontender, full range of motion. SKIN: Color pink, dry, no turgor, no rash, no lacerations, no abrasions, no contusions. LYMPHATICS: Deferred. Results Laboratory and Microbiology Lab and Micro Result Laboratory Tests Test 02/13/24 21:33 02/13/24 22:17 White Blood Count 6.3 K/uL (4.8-10.8) Red Blood Count 4.54 MIL/uL (4.50-6.20) Hemoglobin 13.7 g/dL (14.0-18.0) L Hematocrit 39.9 % (42-54) L Mean Corpuscular Volume 87.9 fL (79-99) Mean Corpuscular Hemoglobin 30.2 pg (27.0-33.0) Mean Corpuscular Hemoglobin Concent 34.3 g/dL (32.0-36.0) Red Cell Distribution Width 12.3 % (11.0-15.5) Platelet Count 178 K/uL (130-400) Mean Platelet Volume 9.4 fL (7.5-10.5) Immature Granulocyte % (Auto) 0.3 % (0-1) Neutrophils (%) (Auto) 64.1 % (40.0-77.0) Lymphocytes (%) (Auto) 25.5 % (21.0-51.0) Monocytes (%) (Auto) 8.4 % (3.0-13.0) Eosinophils (%) (Auto) 1.1 % (0.0-8.0) Basophils (%) (Auto) 0.6 % (0.0-5.0) Neutrophils # (Auto) 4.1 K/uL (1.8-7.7) Lymphocytes # (Auto) 1.6 K/uL (1.0-4.8) Monocytes # (Auto) 0.5 K/uL (0.1-1.0) Eosinophils # (Auto) 0.07 K/uL (0.00-0.70) Basophils # (Auto) 0.04 K/uL (0.00-0.20) Absolute Immature Granulocyte (auto 0.02 K/uL (0-1) Nucleated Red Blood Cells 0.0 % (0.0-0.19) Sodium Level 140 mmol/L (136-145) Potassium Level 3.6 mmol/L (3.5-5.1) Chloride Level 105 mmol/L (101-111) Carbon Dioxide Level 27 mmol/L (21-32) Blood Urea Nitrogen 13 mg/dL (7-18) Creatinine 0.9 mg/dL (0.5-1.3) Glomerular Filtration Rate Calc 121 mL/min (>90) Random Glucose 98 mg/dL (70-105) Total Calcium 9.1 mg/dL (8.5-10.1) Urine Color LIGHT-YELLOW (YELLOW) Urine Appearance CLEAR (CLEAR) Urine pH 6.0 (5.0-8.0) Urine Specific [place] 1.023 (1.001-1.031) Urine Protein NEGATIVE mg/dL (NEGATIVE) Urine Glucose (UA) NEGATIVE mg/dL (NEGATIVE) Urine Ketones NEGATIVE mg/dL (NEGATIVE) Urine Occult Blood NEGATIVE (NEGATIVE) Urine Nitrate NEGATIVE (NEGATIVE) Urine Bilirubin NEGATIVE mg/dL (NEGATIVE) Urine Urobilinogen 0.2 mg/dL (0.2-1.0) Urine Leukocyte Esterase NEGATIVE Nathanael/uL Urine RBC None /HPF (0-1) Urine WBC 0-1 /HPF (0-1) Urine Bacteria None /HPF (None Seen) Labs Reviewed?: Yes EKG/XRAY/US/CT/MRI CT Scan Comment [place] [id number] [id number] IMAGING REPORT Signed PATIENT: KRISTI ALVARADO MR#: [id number] : 1995 SEX: M AGE: 28 LOCATION: [facility] ORDER 26 STATUS: [facility] REPORT#: [id number] SERVICE 25 REASON: llq pain ORDERING PHYSICIAN: SHELBY FERNANDEZ MD PROCEDURE: ABD PEL WO - CT ABDOMEN/PELVIS W/O CONTRAST CT ABDOMEN/PELVIS W/O CONTRAST HISTORY: Left lower abdominal pain COMPARISON: None TECHNIQUE: Multiple sequential axial images of the abdomen and pelvis were obtained from the dome of the diaphragm through symphysis pubis. Patient was not given contrast through intravenous route. Oral contrast was not given. FINDINGS: No pleural effusion is seen bilaterally. There is no evidence of parenchymal disease or pulmonary nodule of the visualized lower lungs. Degenerative changes of the thoracolumbar spine are present. The heart is not enlarged. The liver, spleen, adrenal glands and pancreas are unremarkable. There is no evidence of hydronephrosis bilaterally. There is right renal cyst measuring 18.3 mm No evidence of renal stone is seen. Fecal material is seen in the colon. There are normal size retroperitoneal and mesenteric lymph nodes. No ascites is seen. No CT evidence of acute appendicitis is seen. Pelvic sidewalls are symmetric bilaterally. Bladder is poorly distended with apparent bladder wall thickening. IMPRESSION: 1. No acute findings. CT was performed with one or more following dose reduction techniques: automated exposure control, adjustment of the mA and kv according to patient's size, or use of a iterative reconstruction technique. DICTATED BY: TEOFILO MYRICK MD DATE: 02/13/242218 ELECTRONICALLY SIGNED BY: TEOFILO MYRICK MD DATE: 02/13/242240 MDM MDM: Differential diagnosis: Muscle strain, diverticulitis, Rationale: Tests considered and ordered secondary to shared decision making include: Previous outside records reviewed: Old ER visits. Risk of complication and/or morbidity or mortality of patient management: None Medications-Per medication reconciliation Need for hospitalization: Patient does not meet criteria for hospitalization. Need for emergency major/minor surgery: No There are no social concerns with this patient. Prescription drug management Prescriptions will include symptomatic care Patient's prior external medical records from other ER visits were reviewed by me as indicated. Prior testing and results from previous visits were reviewed. Prior tests were taken into account with medical decision making and resource utilization, independent historian/historians were used to obtain complete me dical history. I independently interpreted the test that were performed, results were reviewed by me and considered findings on radiology if ordered. Medical management and examination interpretation discussions were had by me with other qualified healthcare professionals as indicated for the patient's care. Patient is a 28-year-old male coming in to be evaluated for left lower abdominal pain. Patient states that the pain began earlier today patient also quantifies the pain at 10/10 localized to the lower left quadrant area. Because of the location diverticulitis had to be ruled out. Laboratory workup CT of the abdomen did not disclose acute findings. Patient will be discharged with a diagnosis of muscle strain of the lower left abdominal area. I advised him appropriate follow up PCP in 1-2 days to continue monitoring symptoms have any should arise. ED Course Orders Procedure Category Date Status Time Cbc With Differential LAB 02/13/24 Complete 21: Basic Metabolic Panel LAB 02/13/24 Complete 21: Urinalysis LAB 02/13/24 Complete W/Microscopic 21:26 Ct Abdomen/Pelvis W/O CT 02/13/24 Resulted Contrast 21: Acetaminophen 500mg PHA 9/23/24 Complete Tab (Tylenol 500mg T 21:30 Current Medications Medications (Trade) Dose Ordered Sig/Lisa Route PRN Reason Start Time Stop Time Status Last Admin Dose Admin Acetaminophen (TYLenol 500MG TAB) 500 mg ONCE ONCE PO 02/13/24 21:30 02/13/24 21:31 DC Vital Signs Date Time Temp Pulse Resp B/P (MAP) Pulse Ox O2 Delivery O2 Flow Rate FiO2 02/13/24 22:17 98.4 86 18 146/68 98 Room Air* 0 21 02/13/24 21:52 98.1 84 18 136/76 99 Room Air DX & DISP Disposition: Discharge Departure Impression: Primary Impression: Abdominal muscle strain Condition: Stable Additional Instructions: FOLLOW-UP WITH PRIMARY CARE PROVIDER IN 1 TO 2 DAYS. TAKE MEDICATIONS D IRECTED HERE IN THE EMERGENCY ROOM. OKAY TO CONTINUE HOME MEDICATIONS UNLESS OTHERWISE DISCUSSED DURING YOUR VISIT IN THE EMERGENCY ROOM TODAY. RETURN TO YOUR NEAREST EMERGENCY ROOM IF SYMPTOMS WORSEN OR IF THERE IS NO IMPROVEMENT. CALL 911 IF YOU NEED IMMEDIATE ASSISTANCE. TAKE TYLENOL [id number] NEEDED AND IF NO CONTRAINDICATIONS ARE PRESENT. INCREASE ORAL HYDRATION. A WOUND CULTURE OR URINE CULTURE WAS ORDERED HERE IN THE EMERGENCY ROOM DEPARTMENT PLEASE FOLLOW-UP WITH PRIMARY CARE PROVIDER AND ADVISE THEM TO GET REPEAT PORTS FROM OUR FACILITY. IF YOU HAD ANY OFELIA WRAP/SPLINTS THAT WERE APPLIED HERE, PLEASE DO NOT REMOVE THEM UNTIL YOU SEE YOUR PRIMARY CARE OR SPECIALTY. Referrals: Referrals: ALY MELGOZA JR, MD (PCP) Time of Disposition: 22:47 SHELBY FERNANDEZ MD Feb 13, 2024 22:48
[2024-02-13] MEDS: acetaMINOPHEN 500 MG TABLET PO ONE (22:50)
== END 2024-02-13 22:55 | disposition home or self-care (01) ==
LOC: EDH 21:11
DX: S39.011A Strain of muscle, fascia and tendon of abdomen, initial encounter (principal); F41.9 Anxiety disorder, unspecified; F17.200 Nicotine dependence, unspecified, uncomplicated; Z79.899 Other long term (current) drug therapy; X58.XXXA Exposure to other specified factors, initial encounter; Y93.89 Activity, other specified; Y92.89 Other specified places as the place of occurrence of the external cause; Y99.8 Other external cause status
CPT/HCPCS: 36415; 74176; 80048; 81001; 85025

== ENCOUNTER 2024-02-27 16:44 | Emergency (ER) | payer OTHER, MEDICAID ==
[~2024-02-27] VITALS: Ht 185.4 cm; Wt 87.1 kg
--- NOTE | 2024-02-27 17:12 | ERN ---
ED Note History of Present Illness Stated Complaint: EPIGASTRIC PAIN Chief Complaint: Abdominal Pain Time Seen by MD: 16:51 Dictation: PATIENT IS A 28-YEAR-OLD MALE COMING IN TODAY WITH COMPLAINTS OF EPIGASTRIC PAIN ONSET THIS MORNING WITH NAUSEA VOMITING TIMES 3-4. DENIES FEVER CHILLS NO CHEST PAIN NO BACK PAIN NO SOB. STATES HE SAW HIS PRIMARY CARE DOCTOR THIS AFTERNOON AND HE DID AN X-RAY OF HIS ABDOMEN AND TOLD HIM IF HE FELT ANY WORSE TO GO TO THE EMERGENCY ROOM. PATIENT DENIES HISTORY OF GASTRITIS, DIVERTICULITIS, PANCREATITIS OR DIABETES. Allergies: Coded Allergies: No Known Allergies (Unverified Allergy, Unknown, 10/18/22) Home Meds Active Scripts Sucralfate (Carafate) 1 Gram Tablet, 1 TAB PO QID for 10 Days, #40 TAB 0 Refills Prov:HERMINIO WILKINS NP 02/27/24 Omeprazole (Omeprazole) 40 Mg Capsule.dr, 1 CAP PO DAILY for 30 Days, #30 CAP 0 Refills Prov:HERMINIO WILKINS NP 02/27/24 Ketorolac Tromethamine (Ketorolac Tromethamine) 10 Mg Tablet, 10 MG PO BID for 5 Days, #10 TAB Prov:BARI AG 01/16/24 Methylprednisolone (Medrol) 4 Mg Tab.ds.pk, 4 MG PO AD, #1 UNIT Prov:HERMINIO WILKINS NP 12/27/23 Amoxicillin/Potassium Clav (Amox Tr-K Clv 875-125 mg Tab) 875 Mg-125 Mg Tablet, 1 EACH PO BID for 7 Days, #14 TAB 0 Refills Prov:HERMINIO WILKINS NP 12/27/23 Ondansetron (Ondansetron Odt) 4 Mg Tab.rapdis, 4 MG PO Q6HPRN PRN for nausea, #16 TAB 0 Refills Prov:RIGO WILLIS 12/10/23 Famotidine (Pepcid) 20 Mg Tablet, 20 MG PO BID for 14 Days, #28 TAB 0 Refills Prov:ABNER MURRELL DO 11/16/23 Ondansetron (Ondansetron Odt) 4 Mg Tab.rapdis, 4 MG PO TID PRN for nausea/vomiting for 7 Days, #10 TAB 0 Refills Prov:ABNER MURRELL DO 6/26/24 Ketorolac Tromethamine (Ketorolac Tromethamine) 10 Mg Tablet, 10 MG PO Q6HPRN PRN for PAIN for 7 Days, #28 TAB Prov:ABNER MURRELL DO 11/16/23 Cyclobenzaprine HCl (Flexeril) 10 Mg Tab, 10 MG PO TID PRN for muscle spasm for 7 Days, #21 TAB 0 Refills Prov:ABNER MURRELL DO 11/16/23 Pantoprazole Sodium (Protonix) 20 Mg Tablet.dr, 20 MG PO DAILY, #7 TAB Prov:EDUARD ONOFRE 10/24/23 Ondansetron (Ondansetron Odt) 4 Mg Tab.rapdis, 4 MG PO TID for Vomiting, #10 TAB Prov:MARIANO RIOS DO 10/12/23 Diphenhydramine HCl (Benadryl) 50 Mg Cap, 50 MG PO Q6H for itching/rash, #20 CAP 0 Refills Prov:RIGO WILLIS [employer]ICE CHAIRMAN 09/21/23 Lidocaine (Lidocaine Pain Relief) 4 % Adh..patch, 1 EACH TP DAILY for 5 Days, #5 ADH.PATCH Prov:HUNTER MARIA 08/02/23 Naproxen (Naproxen) 500 Mg Tablet, 500 MG PO BID for 5 Days, #10 TAB Prov:HUNTER MARIA 08/02/23 Cyclobenzaprine HCl (Cyclobenzaprine HCl) 5 Mg Tablet, 5 MG PO DAILYDINNER for 5 Days, #5 TAB Prov:HUNTER MARIA 08/02/23 Azithromycin (Azithromycin) 250 Mg Tablet, 250 MG PO DAILY, #6 TAB Take 2 now then 1 daily until complete. Prov:SMITH MCMAHON V [employer]ICE CHAIRMAN 05/07/23 D-Methorphan Hb/P-Epd HCl/Bpm (Bromfed Dm Cough Syrup) 2 Mg-30 Mg-10 Mg/5 Ml Syrup, 10 ML PO Q4HPRN PRN for COUGH for 10 Days, #100 ML Prov:SMITH MCMAHON V [employer] CHAIRMAN 05/07/23 Cyclobenzaprine HCl (Cyclobenzaprine HCl) 5 Mg Tablet, 5 MG PO DAILYDINNER, #15 TAB Prov:CHELY RAMIREZ PAC 12/14/22 Naproxen (Naprosyn) 500 Mg Tablet, 500 MG PO BIDPC for 10 Days, #20 TAB 0 Refills Prov:CHELY RAMIREZ PAC 12/13/22 D-Methorphan Hb/P-Epd HCl/Bpm (Bromfed Dm Cough Syrup) 118 Ml Syrup, 10 ML PO Q6HPRN PRN for cough for 5 Days, #200 ML Prov:NOBLE MCCLOUD VICE CHAIRMAN 12/10/22 Ondansetron (Ondansetron Odt) 4 Mg Tab.rapdis, 4 MG PO Q6HPRN PRN for nausea/vomiting, #10 TAB 0 Refills Prov:ROCÍO MINAYA NP 12/04/22 Ondansetron (Ondansetron Odt) 4 Mg Tab.rapdis, 4 MG PO TID, #8 TAB Prov:ANNA COELHO MD 12/02/22 Ondansetron (Ondansetron Odt) 4 Mg Tab.rapdis, 4 MG PO TID for 2 Days, #8 TAB Prov:SMITH CMMAHON [facility] 11/25/22 Metoclopramide HCl (Reglan 10 mg Tab) 10 Mg Tablet, 10 MG PO Q6HPRN PRN for nausea, #30 TAB 0 Refills Prov:ROCÍO MINAYA NP 11/22/22 Pantoprazole Sodium (Protonix) 40 Mg Ectab, 40 MG PO DAILY, #14 TAB.EC 0 Refills Prov:ROCÍO MINAYA NP 11/22/22 Cyclobenzaprine HCl (Flexeril) 10 Mg Tab, 10 MG PO TID for 3 Days, #9 TAB Prov:SMITH MCMAHON [facility] 10/18/22 Ibuprofen (Ibuprofen) 600 Mg Tablet, 600 MG PO Q6H PRN for PAIN, #30 TAB Prov:SMITH MCMAHON [facility] 10/18/22 Past Medical History Past Medical History: Anxiety Additional Past Medical Hx: ADHD , GASTRITIS Surgical History: None Family History: HTN Social History: Smokers, Lives with family RN Note Reviewed/Agreed w/PFSH: Yes Review of System Dictation CONSTITUTIONAL: NEGATIVE EXCEPT FOR HPI HEAD/FACE: NEGATIVE EXCEPT FOR HPI EENT: NEGATIVE EXCEPT FOR HPI RESPIRATORY: NEGATIVE EXCEPT FOR HPI GASTROINTESTINAL/ABDOMINAL: NEGATIVE EXCEPT FOR HPI EPIGASTRIC PAIN WITH NAUSEA VOMITING GENITOURINARY: NEGATIVE EXCEPT FOR HPI MUSCULOSKELETAL: NEGATIVE EXCEPT FOR HPI INTEGUMENTARY: NEGATIVE EXCEPT FOR HPI NEUROLOGICAL/PSYCH: NEGATIVE EXCEPT FOR HPI HEMATOLOGIC/LYMPHATIC: NEGATIVE EXCEPT FOR HPI ALL SYSTEMS NEGATIVE, EXCEPT NOTED ABOVE. 13 POINT REVIEW OF SYSTEMS ASSESSED AND ALL NEGATIVE EXCEPT FOR ABOVE. Initial Vital Sign VS Vital Signs Date Time Temp Pulse Resp B/P (MAP) Pulse Ox O2 Delivery O2 Flow Rate FiO2 02/27/24 16:56 97.9 63 20 121/82 96 Room Air 0 02/27/24 19:23 21 Physical Exam Dictation VITAL SIGNS REVIEWED GENERAL APPEARANCE: ALERT, ORIENTED X 3, NO ACUTE DISTRESS, WELL DEVELOPED, NOURISHED. HEAD AND FACE: NON-TRAUMATIC. EYES: PERRL, PINK CONJUNCTIVAS, EYELID NO TRAUMA, ANTERIOR CHAMBER WITH ARCUS SENILIS. EARS: PINNAS INTACT AND NO SIGNS OF TRAUMA OR ERYTHEMA EAR CANALS CLEAR AND NO DISCHARGE TM NO ERYTHEMA NOSE: NO DISCHARGE, NO BLEEDING. OROPHARYNX: MOUTH NORMAL, TONGUE PINK, PHARYNX CLEAR,NO ERYTHEMA, TONSILS NO EXUDATES, NO ABSCESSES NOTED, MUCOUS MEMBRANE MOIST NECK: SUPPLE, NON-TENDER, NO THYROMEGALY, NO MASSES, NO JVD, NO BRUITS BREAST:DEFERRED CHEST:NO TENDERNESS, NO CREPITUS, NO PARADOXICAL MOVEMENT, NO RETRACTIONS LUNGS:CLEAR, WELL-VENTILATED, SYMMETRIC, NO RALES, NO WHEEZING, NO RHONCHI, NO STRIDOR, GOOD BREATH SOUNDS BILATERALLY HEART: REGULAR RATE, REGULAR RHYTHM, NO MURMUR, NO GALLOPS VASCULAR: NO PERIPHERAL EDEMA, ABDOMEN: SOFT, POSITIVE BOWEL SOUNDS, NONDISTENDED, NO GUARDING, MODERATE EPIGASTRIC PAIN WITH PALPATION NEGATIVE RUBIO SIGN NEGATIVE MCBURNEY'S POINT PAIN RECTAL: DEFERRED GENITAL: DEFERRED NEUROLOGICAL: NORMAL SPEECH, MOTOR FUNCTION INTACT, SENSORY FUNCTION INTACT MUSCULOSKELETAL: NECK NONTENDER, FULL RANGE OF MOTION, BACK NONTENDER, FULL RANGE OF MOTION, EXTREMITIES: NONTENDER, FULL RANGE OF MOTION SKIN: COLOR PINK, DRY, NO TURGOR, NO RASH, NO LACERATIONS, NO ABRASIONS, NO CONTUSIONS. LYMPHATIC: DEFERRED Results (Laboratory/Radiology) Laboratory/Radiology Laboratory Tests Test 02/27/24 17:07 02/27/24 17:50 Urine Color YELLOW (YELLOW) Urine Appearance CLEAR (CLEAR) Urine pH 6.0 (5.0-8.0) Urine Specific Allen 1.030 (1.001-1.031) Urine Protein 30 mg/dL (NEGATIVE) H Urine Glucose (UA) NEGATIVE mg/dL (NEGATIVE) Urine Ketones NEGATIVE mg/dL (NEGATIVE) Urine Occult Blood NEGATIVE (NEGATIVE) Urine Nitrate NEGATIVE (NEGATIVE) Urine Bilirubin NEGATIVE mg/dL (NEGATIVE) Urine Urobilinogen 0.2 mg/dL (0.2-1.0) Urine Leukocyte Esterase NEGATIVE Nathanael/uL Urine RBC 2-5 /HPF (0-1) H Urine WBC 0-1 /HPF (0-1) Urine Squamous Epithelial Cells RARE /HPF (0-2) Urine Bacteria None /HPF (None Seen) White Blood Count 8.0 K/uL (4.8-10.8) Red Blood Count 5.18 MIL/uL (4.50-6.20) Hemoglobin 15.4 g/dL (14.0-18.0) Hematocrit 44.9 % (42-54) Mean Corpuscular Volume 86.7 fL (79-99) Mean Corpuscular Hemoglobin 29.7 pg (27.0-33.0) Mean Corpuscular Hemoglobin Concent 34.3 g/dL (32.0-36.0) Red Cell Distribution Width 12.1 % (11.0-15.5) Platelet Count 220 K/uL (130-400) Mean Platelet Volume 9.7 fL (7.5-10.5) Immature Granulocyte % (Auto) 0.3 % (0-1) Neutrophils (%) (Auto) 76.5 % (40.0-77.0) Lymphocytes (%) (Auto) 16.3 % (21.0-51.0) L Monocytes (%) (Auto) 6.1 % (3.0-13.0) Eosinophils (%) (Auto) 0.3 % (0.0-8.0) Basophils (%) (Auto) 0.5 % (0.0-5.0) Neutrophils # (Auto) 6.1 K/uL (1.8-7.7) Lymphocytes # (Auto) 1.3 K/uL (1.0-4.8) Monocytes # (Auto) 0.5 K/uL (0.1-1.0) Eosinophils # (Auto) 0.02 K/uL (0.00-0.70) Basophils # (Auto) 0.04 K/uL (0.00-0.20) Absolute Immature Granulocyte (auto 0.02 K/uL (0-1) Nucleated Red Blood Cells 0.0 % (0.0-0.19) Sodium Level 139 mmol/L (136-145) Potassium Level 3.8 mmol/L (3.5-5.1) Chloride Level 103 mmol/L (101-111) Carbon Dioxide Level 29 mmol/L (21-32) Blood Urea Nitrogen 12 mg/dL (7-18) Creatinine 0.9 mg/dL (0.5-1.3) Glomerular Filtration Rate Calc 121 mL/min (>90) Random Glucose 99 mg/dL (70-105) Total Calcium 9.7 mg/dL (8.5-10.1) Lipase 206 U/L (16-77) H Labs Reviewed?: Yes ED Course ED Course Orders Procedure Category Date Status Time Cbc With Differential LAB 02/27/24 Complete 17:05 Urinalysis Profile LAB 02/27/24 Complete 17:05 0.9%Nacl 1000ml (Ns PHA 02/27/24 Complete 1000ml) 17:30 Morphine 2mg Syg PHA 02/27/24 Complete (Morphine 2mg Syg) 17:30 Ondansetron 4mg Inj PHA 02/27/24 Complete (Zofran 4mg Inj) 17:30 Pantoprazole 40mg Inj PHA 02/27/24 Complete (Protonix 40mg Inj 17:30 Lipase LAB 02/27/24 Complete 17:05 Basic Metabolic Panel LAB 02/27/24 Complete 17:05 Lidocaine Hcl 2% PHA 02/27/24 Complete Viscous (Lidocaine Hcl 19:30 Mag/Alum/Simeth 30ml PHA 02/27/24 Complete (Maalox Plus 30ml) 19:30 Dicyclomine Hcl PHA 02/27/24 Complete (Bentyl 10mg/5ml 19:30 Current Medications Medications (Trade) Dose Ordered Sig/Lisa Route PRN Reason Start Time Stop Time Status Last Admin Dose Admin Al Hydroxide/Mg Hydroxide (MAALox PLUS 30ML) 30 ml ONCE ONCE PO 02/27/24 19:30 02/27/24 19:31 DC 02/27/24 19:32 Dicyclomine HCl (Bentyl 10mg/5ml Syrup) 10 mg ONCE ONCE PO 02/27/24 19:30 02/27/24 19:31 DC 02/27/24 19:32 Lidocaine HCl (Lidocaine HCl 2% Viscous) 10 ml ONCE ONCE PO 02/27/24 19:30 02/27/24 19:31 DC 02/27/24 19:32 Morphine Sulfate (morPHINE 2MG SYG) 2 mg ONCE ONCE IVP 02/27/24 17:30 02/27/24 18:17 DC Ondansetron HCl (zoFRAN 4MG INJ) 4 mg ONCE ONCE IVP 02/27/24 17:30 02/27/24 18:17 DC Pantoprazole Sodium (PROTonix 40MG INJ) 40 mg ONCE ONCE IVP 02/27/24 17:30 02/27/24 17:31 DC 02/27/24 18:27 Sodium Chloride 1,000 ml @ 0 mls/hr ONCE ONCE IV 02/27/24 17:30 02/27/24 17:31 DC 02/27/24 18:27 Vital Signs Date Time Temp Pulse Resp B/P (MAP) Pulse Ox O2 Delivery O2 Flow Rate FiO2 02/27/24 19:23 97.9 62 20 118/78 97 Room Air* 0 21 02/27/24 16:56 97.9 63 20 121/82 96 Room Air 0 1950, PATIENT STATES PAIN MARKEDLY IMPROVED AFTER GI COCKTAIL. DISCHARGED HOME WITH A ACUTE GASTRITIS, ELEVATED LIPASE PUT ON OMEPRAZOLE AND CARAFATE AND TOLD TO SEE IN 1-2 DAYS Medical Decision Making MDM MEDICAL DISCHARGE MAKING BASED ON BASIC LABS AND TREATMENT FOR ACUTE GASTRITIS. PATIENT HAS ELEVATED LIPASE HOWEVER DOES NOT CONSTITUTE PANCREATITIS PAIN RELIEVED WIT GI COCKTAIL, PROTONIX DISCHARGED HOME WITH OMEPRAZOLE/CARAFATE AND GIVEN THE NAME OF DEAN TO FOLLOW UP. ALSO TO FOLLOW A LOW-FAT LOBE BLAND DIET WITH WATER FOR FLUIDS ONLY DX & DISP Disposition: Discharge Departure Impression: Primary Impression: Acute gastritis Additional Impressions: Nausea & vomiting, Elevated lipase Condition: Stable Scripts Sucralfate (Carafate) 1 Gram Tablet 1 TAB PO QID for 10 Days, #40 TAB 0 Refills Prov: HERMINIO WILKINS [employer]CR[employer]E [employer]ODU[employer] DISPATCHER 02/27/24 Omeprazole (Omeprazole) 40 Mg Capsule. 1 CAP PO DAILY for 30 Days, #30 CAP 0 Refills Prov: HERMINIO WILKINS CONCRETE [employer]ODU[employer] DISPATCHER 02/27/24 Additional Instructions: FOLLOW-UP WITH PRIMARY CARE PROVIDER IN 1 TO 2 DAYS. TAKE MEDICATIONS DIRECTED HERE IN THE EMERGENCY ROOM. OKAY TO CONTINUE HOME MEDICATIONS UNLESS OTHERWISE DISCUSSED DURING YOUR VISIT IN THE EMERGENCY ROOM TODAY. RETURN TO YOUR NEAREST EMERGENCY ROOM IF SYMPTOMS WORSEN OR IF THERE IS NO IMPROVEMENT. CALL 911 IF YOU NEED IMMEDIATE ASSISTANCE. TAKE TYLENOL OR MOTRIN [id number] NEEDED AND IF NO CONTRAINDICATIONS ARE PRESENT. INCREASE ORAL HYDRATION. A WOUND CULTURE OR URINE CULTURE WAS ORDERED HERE IN THE EMERGENCY ROOM DEPARTMENT PLEASE FOLLOW-UP WITH PRIMARY CARE PROVIDER AND ADVISE THEM TO GET REPEAT PORTS FROM OUR FACILITY. IF YOU HAD ANY OFELIA WRAP/SPLINTS THAT WERE APPLIED HERE, PLEASE DO NOT REMOVE THEM UNTIL YOU SEE YOUR PRIMARY CARE OR SPECIALTY. FOLLOW A BLAND DIET, WATER FOR FLUIDS ONLY. NO ICE TEA, NO COFFEE, NO SODA POP, NO SPICY FOODS UNTIL CLEARED BY GASTROENTEROLOGY, CALL FOR AN APPOINTMENT TOMORROW. Referrals: ALY MELGOZA JR, MD (PCP) NAYE GUNN MD Time of Disposition: 19:54 I have reviewed the case, and I agree with, Diagnosis and Plan I performed a substantive portion of the visit. I have reviewed and personally made and approve the management plan that is documented in the notes by myself with JARET/resident. I acknowledged full responsibility for the patient's management plan. HERMINIO WILKINS NP Feb 27, 2024 17:12 MARIANO RIOS DO Feb 28, 2024 01:13
[2024-02-27 17:19] LABS: ADD UA MICROSCOPIC YES; APPEARANCE,URINE CLEAR (CLEAR); BILIRUBIN,URINE NEGATIVE (NEGATIVE); COLOR,URINE YELLOW (YELLOW); GLUCOSE, URINE (UA) NEGATIVE (NEGATIVE); KETONES,URINE NEGATIVE (NEGATIVE); LEUKOCYTE ESTERASE ,URINE NEGATIVE Leu/uL (NEGATIVE); NITRATE,URINE NEGATIVE (NEGATIVE); OCCULT BLOOD,URINE NEGATIVE (NEGATIVE); PROTEIN,URINE 30 mg/dL (NEGATIVE); UROBILINOGEN,URINE 0.2 mg/dL (0.2-1.0)
[2024-02-27 17:20] LABS: MUCUS,URINE FEW LPF (None Seen); SQUAMOUS EPITHELIAL CELL,UR RARE /HPF (0-2); WBC,URINE 0-1 /HPF (0-1)
[2024-02-27] MEDS ORDERED: morPHINE 2 MG SYG IVP ONE (17:30)
[2024-02-27] MEDS ORDERED: ondanSETRON 4MG INJ IVP ONE (17:30)
[2024-02-27 17:58] LABS: BASOPHILS # (AUTO) 0.04 K/uL (0.00-0.20); BASOPHILS % (AUTO) 0.5 % (0.0-5.0); EOSINOPHILS # (AUTO) 0.02 K/uL (0.00-0.70); EOSINOPHILS % (AUTO) 0.3 % (0.0-8.0); HEMATOCRIT 44.9 % (42-54); IMMATURE GRANULOCYTE ABSOLUTE 0.02 K/uL (0-1); LYMPHOCYTES # (AUTO) 1.3 K/uL (1.0-4.8); LYMPHOCYTES % (AUTO) 16.3 % (21.0-51.0); MEAN CORPUSCULAR HEMOGLOBIN 29.7 pg (27.0-33.0); MEAN CORPUSCULAR HGB CONC 34.3 g/dL (32.0-36.0); MEAN CORPUSCULAR VOLUME 86.7 fL (79-99); MONOCYTES # (AUTO) 0.5 K/uL (0.1-1.0); MONOCYTES % (AUTO) 6.1 % (3.0-13.0); NEUTROPHILS # (AUTO) 6.1 K/uL (1.8-7.7); NEUTROPHILS % (AUTO) 76.5 % (40.0-77.0); PLATELET COUNT (AUTO) 220 K/uL (130-400); RED BLOOD CELL COUNT(AUTO) 5.18 MIL/uL (4.50-6.20); RED CELL DISTRIBUTION WIDTH 12.1 % (11.0-15.5)
[2024-02-27 18:13] LABS: CREATININE 0.9 mg/dL (0.5-1.3); POTASSIUM 3.8 mmol/L (3.5-5.1)
[2024-02-27] MEDS: 0.9%NACL 1000ML 1,000 ML IV ONE (18:27)
[2024-02-27] MEDS: PANTOPrazole 40 MG/VIAL IVP ONE (18:27)
[2024-02-27 19:23] VITALS: BP 118/78; PULSE 62; RESP 20; TEMP 97.9; O2SAT 97
[2024-02-27] MEDS: LIDOCAINE HCL 2% VISCOUS 15 ML UDCUP PO ONE (19:32)
[2024-02-27] MEDS: MAG/ALUM/SIMETH 30 ML UDCUP PO ONE (19:32)
[2024-02-27] MEDS: DICYCLOMINE HCL 10 MG/5 ML ML PO ONE (19:32)
[2024-02-27] MEDS ORDERED: OMEP40CA21 PO (19:55)
[2024-02-27] MEDS ORDERED: SUCR1TAB28 PO (19:55)
== END 2024-02-27 19:58 | disposition home or self-care (01) ==
LOC: EDH 16:44
DX: K29.00 Acute gastritis without bleeding (principal); R74.8 Abnormal levels of other serum enzymes; F41.9 Anxiety disorder, unspecified; F17.200 Nicotine dependence, unspecified, uncomplicated; Z79.899 Other long term (current) drug therapy
CPT/HCPCS: 99284; 96374; 96361; 80048; 83690; 85025; 81001; 36415; J7030; J2470; J2270; J2405

== ENCOUNTER 2024-03-18 11:30 | Emergency (ER) | payer MEDICAID ==
[~2024-03-18] VITALS: Ht 185.4 cm; Wt 86.2 kg
[~2024-03-18 11:30] MED LIST changes: +OMEP40CA21 PO; +SUCR1TAB28 PO
[2024-03-18] MEDS: 0.9%NACL 1000ML 1,000 ML IV ONE (12:22)
[2024-03-18] MEDS: metoCLOPRAmide 10 MG/2 ML VIAL IVP ONE (12:22)
--- NOTE | 2024-03-18 12:26 | ERN ---
General Chief Complaint: Nausea,Vomiting,Diarrhea Stated Complaint: NAUSEA AND VOMITING Time Seen by MD: 11:33 History of Present Illness Initial Comments 88-year-old male presents to the ED for evaluation of vomiting onset 1 day ago. Patient reports nausea, abdominal pain, but denies any diarrhea or any other associated symptoms at this time. Patient states pain began after eating tacos last night stating his girlfriend also has similar symptoms. Allergies: Coded Allergies: No Known Allergies (Unverified Allergy, Unknown, 10/18/22) Home Meds Active Scripts Sucralfate (Carafate) 1 Gram Tablet, 1 TAB PO QID for 10 Days, #40 TAB 0 Refills Prov:HERMINIO WILKINS NP 02/27/24 Omeprazole (Omeprazole) 40 Mg Capsule.dr, 1 CAP PO DAILY for 30 Days, #30 CAP 0 Refills Prov:HERMINIO WILKINS INFANT BABYSITTER 02/27/24 Ketorolac Tromethamine (Ketorolac Tromethamine) 10 Mg Tablet, 10 MG PO BID for 5 Days, #10 TAB Prov:BARI AG 01/16/24 Methylprednisolone (Medrol) 4 Mg Tab.ds.pk, 4 MG PO AD, #1 UNIT Prov:HEMRINIO WILKINS NP 12/27/23 Amoxicillin/Potassium Clav (Amox Tr-K Clv 875-125 mg Tab) 875 Mg-125 Mg Tablet, 1 EACH PO BID for 7 Days, #14 TAB 0 Refills Prov:HERMINIO WILKINS NP 12/27/23 Ondansetron (Ondansetron Odt) 4 Mg Tab.rapdis, 4 MG PO Q6HPRN PRN for nausea, #16 TAB 0 Refills Prov:RIGO WILLIS GROCERY SPECIALIST 12/10/23 Famotidine (Pepcid) 20 Mg Tablet, 20 MG PO BID for 14 Days, #28 TAB 0 Refills Prov:ABNER MURRELL DO 11/16/23 Ondansetron (Ondansetron Odt) 4 Mg Tab.rapdis, 4 MG PO TID PRN for nausea/vomiting for 7 Days, #10 TAB 0 Refills Prov:ABNER MURRELL DO 11/16/23 Ketorolac Tromethamine (Ketorolac Tromethamine) 10 Mg Tablet, 10 MG PO Q6HPRN PRN for PAIN for 7 Days, #28 TAB Prov:ABNER MURRELL DO 11/16/23 Cyclobenzaprine HCl (Flexeril) 10 Mg Tab, 10 MG PO TID PRN for muscle spasm for 7 Days, #21 TAB 0 Refills Prov:ABNER MURRELL DO 11/16/23 Pantoprazole Sodium (Protonix) 20 Mg Tablet.dr, 20 MG PO DAILY, #7 TAB Prov:EDUARD ONOFRE 10/24/23 Ondansetron (Ondansetron Odt) 4 Mg Tab.rapdis, 4 MG PO TID for Vomiting, #10 TAB Prov:MARIANO ORTIZ DO 10/12/23 Diphenhydramine HCl (Benadryl) 50 Mg Cap, 50 MG PO Q6H for itching/rash, #20 CAP 0 Refills Prov:RIGO WILLISP 09/21/23 Lidocaine (Lidocaine Pain Relief) 4 % Adh..patch, 1 EACH TP DAILY for 5 Days, #5 ADH.PATCH Prov:HUNTER MARIA 08/02/23 Naproxen (Naproxen) 500 Mg Tablet, 500 MG PO BID for 5 Days, #10 TAB Prov:HUNTER MARIA 08/02/23 Cyclobenzaprine HCl (Cyclobenzaprine HCl) 5 Mg Tablet, 5 MG PO DAILYDINNER for 5 Days, #5 TAB Prov:HUNTER MARIA 08/02/23 Azithromycin (Azithromycin) 250 Mg Tablet, 250 MG PO DAILY, #6 TAB Take 2 now then 1 daily until complete. Prov:SMITH MCMAHON 05/07/23 D-Methorphan Hb/P-Epd HCl/Bpm (Bromfed Dm Cough Syrup) 2 Mg-30 Mg-10 Mg/5 Ml Syrup, 10 ML PO Q4HPRN PRN for COUGH for 10 Days, #100 ML Prov:SMITH MCMAHON 05/07/23 Cyclobenzaprine HCl (Cyclobenzaprine HCl) 5 Mg Tablet, 5 MG PO DAILYDINNER, #15 TAB Prov:CHELY RAMIREZ 12/14/22 Naproxen (Naprosyn) 500 Mg Tablet, 500 MG PO BIDPC for 10 Days, #20 TAB 0 Refills Prov:CHELY RAMIREZ 12/13/22 D-Methorphan Hb/P-Epd HCl/Bpm (Bromfed Dm Cough Syrup) 118 Ml Syrup, 10 ML PO Q6HPRN PRN for cough for 5 Days, #200 ML Prov:NOBLE [facility] 12/10/22 Ondansetron (Ondansetron Odt) 4 Mg Tab.rapdis, 4 MG PO Q6HPRN PRN for nausea /vomiting, #10 TAB 0 Refills Prov:ROCÍO MINAYA NP 12/04/22 Ondansetron (Ondansetron Odt) 4 Mg Tab.rapdis, 4 MG PO TID, #8 TAB Prov:ANNA COELHO MD 12/02/22 Ondansetron (Ondansetron Odt) 4 Mg Tab.rapdis, 4 MG PO TID for 2 Days, #8 TAB Prov:SMITH MCMAHON [facility] 11/25/22 Metoclopramide HCl (Reglan 10 mg Tab) 10 Mg Tablet, 10 MG PO Q6HPRN PRN for nausea, #30 TAB 0 Refills Prov:ROCÍO MINAYA NP 11/22/22 Pantoprazole Sodium (Protonix) 40 Mg Ectab, 40 MG PO DAILY, #14 TAB.EC 0 Refills Prov:ROCÍO MINAYA NP 11/22/22 Cyclobenzaprine HCl (Flexeril) 10 Mg Tab, 10 MG PO TID for 3 Days, #9 TAB Prov:SMITH MCMAHON [facility] 10/18/22 Ibuprofen (Ibuprofen) 600 Mg Tablet, 600 MG PO Q6H PRN for PAIN, #30 TAB Prov:SMITH MCMAHON [facility] 10/18/22 Past Medical History Past Medical History: Asthma, Bipolar, Seizure Medical History Other: ADHD , GASTRITIS Past Surgical History: Other Family History Family History: HTN Social History Social History: Smokers, Lives with family ROS Dictation Constitutional: Negative for fever,chills, and weight loss Eyes: Negative for injury, pain,redness, and discharge ENT: Negative for injury,pain or swelling Cardiovascular: Negative for chest pain, palpitations, and edema Respiratory: Negative for shortness of breath, cough, and wheezing, Abdomen/GI: Positive for abdominal pain, nausea, vomiting negative for diarrhea and constipation Back: Negative for injury and pain : Negative for injury, bleeding and discharge MS/Extremity: Negative for injury and deformity Skin: Negative for rash, and discoloration Neuro: Negative for headache, weakness, numbness, tingling, and seizure Psych: Negative for suicide ideation, homicidal ideation, and hallucinations Physical Exam Physical Exam Dictation General: awake, alert, NAD Head/Face: Normocephalic, atraumatic Eyes: PERRL, EOMI, vision at baseline ENT: oral cavity clear, TMs clear, no signs of infection, dry mucous membranes Neck: Trachea midline, supple, no nuchal rigidity Cardiovascular: RRR, normal S1/S2, No MRGs, no JVD Respiratory: CTAB, no respiratory distress, No rales or wheezes Abdomen: Soft, mild epigastric tenderness, non-distended, normal bowel sounds, no guarding or rebound. Skin: Warm, dry, normal turgor, no rash MS/Extremity: Pulses equal, no cyanosis, neurovascular intact, FROM Neuro: COAx4, GCS 15, strength 5/5, CN 2-12 intact, normal cerebellar exam, normal gait, Psych: Normal behavior, mood, and affect normal Results Laboratory and Microbiology Lab and Micro Result Laboratory Tests Test 03/18/24 12:08 03/18/24 12:18 Urine Color LIGHT-YELLOW (YELLOW) Urine Appearance CLEAR (CLEAR) Urine pH 7.0 (5.0-8.0) Urine Specific Randolph 1.013 (1.001-1.031) Urine Protein NEGATIVE mg/dL (NEGATIVE) Urine Glucose (UA) NEGATIVE mg/dL (NEGATIVE) Urine Ketones NEGATIVE mg/dL (NEGATIVE) Urine Occult Blood NEGATIVE (NEGATIVE) Urine Nitrate NEGATIVE (NEGATIVE) Urine Bilirubin NEGATIVE mg/dL (NEGATIVE) Urine Urobilinogen 0.2 mg/dL (0.2-1.0) Urine Leukocyte Esterase NEGATIVE Nathanael/uL White Blood Count 6.4 K/uL (4.8-10.8) Red Blood Count 4.98 MIL/uL (4.50-6.20) Hemoglobin 14.9 g/dL (14.0-18.0) Hematocrit 43.9 % (42-54) Mean Corpuscular Volume 88.2 fL (79-99) Mean Corpuscular Hemoglobin 29.9 pg (27.0-33.0) Mean Corpuscular Hemoglobin Concent 33.9 g/dL (32.0-36.0) Red Cell Distribution Width 12.3 % (11.0-15.5) Platelet Count 177 K/uL (130-400) Mean Platelet Volume 9.6 fL (7.5-10.5) Immature Granulocyte % (Auto) 0.2 % (0-1) Neutrophils (%) (Auto) 72.3 % (40.0-77.0) Lymphocytes (%) (Auto) 17.7 % (21.0-51.0) L Monocytes (%) (Auto) 8.6 % (3.0-13.0) Eosinophils (%) (Auto) 0.6 % (0.0-8.0) Basophils (%) (Auto) 0.6 % (0.0-5.0) Neutrophils # (Auto) 4.6 K/uL (1.8-7.7) Lymphocytes # (Auto) 1.1 K/uL (1.0-4.8) Monocytes # (Auto) 0.6 K/uL (0.1-1.0) Eosinophils # (Auto) 0.04 K/uL (0.00-0.70) Basophils # (Auto) 0.04 K/uL (0.00-0.20) Absolute Immature Granulocyte (auto 0.01 K/uL (0-1) Nucleated Red Blood Cells 0.0 % (0.0-0.19) Sodium Level 135 mmol/L (136-145) L Potassium Level 3.9 mmol/L (3.5-5.1) Chloride Level 100 mmol/L (101-111) L Carbon Dioxide Level 32 mmol/L (21-32) Blood Urea Nitrogen 11 mg/dL (7-18) Creatinine 0.8 mg/dL (0.5-1.3) Glomerular Filtration Rate Calc 125 mL/min (>90) Random Glucose 95 mg/dL (70-105) Total Calcium 9.1 mg/dL (8.5-10.1) Total Bilirubin 0.8 mg/dL (0.2-1.0) Direct Bilirubin 0.2 mg/dL (0.0-0.3) Aspartate Amino Transf (AST/SGOT) 14 U/L (10-37) Alanine Aminotransferase (ALT/SGPT) 22 U/L (12-78) Alkaline Phosphatase 73 U/L (50-136) Total Protein 7.5 g/dL (6.0-8.3) Albumin 4.2 g/dL (3.5-5.0) Lipase 21 U/L (16-77) MDM MDM: Differential diagnosis: Vomiting, food poisoning, viral syndrome Previous outside records reviewed: Old ER visits. Need for hospitalization: Patient does not meet criteria for hospitalization. Need for emergency major/minor surgery: No Patient's prior external medical records from other ER visits were reviewed by me as indicated. Prior testing and results from previous visits were reviewed. Prior tests were taken into account with medical decision making and resource utilization, independent historian/historians were used to obtain complete medical history. I independently interpreted the test that were performed, results were reviewed by me and considered findings on radiology if ordered. Medical management and examination interpretation discussions were had by me with other qualified healthcare professionals as indicated for the patient's care. Vital signs are stable Abdomen soft nontender Labs interpreted by me: CBC is normal, no shift or bands. Chemistry panel is normal liver enzymes normal lipase normal UA is unremarkable Patient received IV fluids IV Reglan in the ER. On re-evaluation is as soft nontender abdomen. No indication for imaging at this time. Likely viral syndrome we will DC. ED Course Orders Procedure Category Date Status Time Cbc With Differential LAB 03/18/24 Complete 11:39 Basic Metabolic Panel LAB 03/18/24 Complete 11:39 Lipase LAB 03/18/24 Complete 11:39 Hepatic Function Panel LAB 03/18/24 Complete 11:39 Urinalysis Profile LAB 03/18/24 Complete 11:40 0.9%Nacl 1000ml (Ns PHA 03/18/24 Complete 1000ml) 12:00 Metoclopramide 10 PHA 03/18/24 Complete Mg/2 Ml Vial (Reglan 1 12:00 Current Medications Medications (Trade) Dose Ordered Sig/Lisa Route PRN Reason Start Time Stop Time Status Last Admin Dose Admin Metoclopramide HCl (regLAN 10MG IV) 10 mg ONCE ONCE IVP 03/18/24 12:00 03/18/24 12:01 DC 03/18/24 12:22 Sodium Chloride 1,000 ml @ 0 mls/hr ONCE ONCE IV 03/18/24 12:00 03/18/24 12:01 DC 03/18/24 12:22 Vital Signs Date Time Temp Pulse Resp B/P (MAP) Pulse Ox O2 Delivery O2 Flow Rate FiO2 03/18/24 11:33 98.2 86 18 125/87 97 Room Air DX & DISP Disposition: Discharge Departure Impression: Primary Impression: Nausea & vomiting Additional Impression: Viral syndrome Condition: Stable Scripts Ondansetron (Ondansetron Odt) 4 Mg Tab.rapdis 1 TAB PO Q6HPRN PRN for nausea/vomiting for 4 Days, #10 TAB 0 Refills Prov: MARIANO ORTIZ DO 03/18/24 Additional Instructions: You likely have a viral syndrome or food toxicity causing your vomiting. These will pass on their own antibiotics. Your lab work (CBC, BMP, liver function tests, lipase, urinalysis) is unremarkable. You received IV fluids and IV Reglan here in the ER. I have prescribed ondansetron dissolvable tabs. Use as needed to prevent vomiting over the next few days. You can take it up to 4 times a day. Drink plenty of liquids. An electrolyte solution such as Gatorade is a good choice. Start with the BRAT (bananas, rice, applesauce, toast) diet. Advance her diet slowly as tolerated. Please return to the emergency department if you have any concerns. Referrals: ALY MELGOZA JR, MD (PCP) I have reviewed, & agreed with my scribe's, documentation. (Entered by Basil Jack, acting as a scribe for Dr. Ortiz) I personally scribed for MARIANO ORTIZ DO ([place]) on 03/18/24 at 12:26. Electronically submitted by Basil Jack ([email or web address]). MARIANO ORTIZ DO Mar 18, 2024 12:26
[2024-03-18 12:27] LABS: BASOPHILS # (AUTO) 0.04 K/uL (0.00-0.20); BASOPHILS % (AUTO) 0.6 % (0.0-5.0); EOSINOPHILS # (AUTO) 0.04 K/uL (0.00-0.70); EOSINOPHILS % (AUTO) 0.6 % (0.0-8.0); HEMATOCRIT 43.9 % (42-54); IMMATURE GRANULOCYTE ABSOLUTE 0.01 K/uL (0-1); LYMPHOCYTES # (AUTO) 1.1 K/uL (1.0-4.8); LYMPHOCYTES % (AUTO) 17.7 % (21.0-51.0); MEAN CORPUSCULAR HEMOGLOBIN 29.9 pg (27.0-33.0); MEAN CORPUSCULAR HGB CONC 33.9 g/dL (32.0-36.0); MEAN CORPUSCULAR VOLUME 88.2 fL (79-99); MONOCYTES # (AUTO) 0.6 K/uL (0.1-1.0); MONOCYTES % (AUTO) 8.6 % (3.0-13.0); NEUTROPHILS # (AUTO) 4.6 K/uL (1.8-7.7); NEUTROPHILS % (AUTO) 72.3 % (40.0-77.0); PLATELET COUNT (AUTO) 177 K/uL (130-400); RED BLOOD CELL COUNT(AUTO) 4.98 MIL/uL (4.50-6.20); RED CELL DISTRIBUTION WIDTH 12.3 % (11.0-15.5); WHITE BLOOD COUNT (AUTO) 6.4 K/uL (4.8-10.8)
[2024-03-18 12:34] LABS: APPEARANCE,URINE CLEAR (CLEAR); BILIRUBIN,URINE NEGATIVE (NEGATIVE); COLOR,URINE LIGHT-YELLOW (YELLOW); GLUCOSE, URINE (UA) NEGATIVE (NEGATIVE); KETONES,URINE NEGATIVE (NEGATIVE); LEUKOCYTE ESTERASE ,URINE NEGATIVE Leu/uL (NEGATIVE); NITRATE,URINE NEGATIVE (NEGATIVE); OCCULT BLOOD,URINE NEGATIVE (NEGATIVE); PROTEIN,URINE NEGATIVE (NEGATIVE); UROBILINOGEN,URINE 0.2 mg/dL (0.2-1.0)
[2024-03-18 12:36] LABS: CREATININE 0.8 mg/dL (0.5-1.3); POTASSIUM 3.9 mmol/L (3.5-5.1)
[2024-03-18 12:37] LABS: ADD UA MICROSCOPIC NO
[2024-03-18 12:41] LABS: ALBUMIN 4.2 g/dL (3.5-5.0); BILIRUBIN,DIRECT 0.2 mg/dL (0.0-0.3); BILIRUBIN,TOTAL 0.8 mg/dL (0.2-1.0); TOTAL PROTEIN, SERUM 7.5 g/dL (6.0-8.3)
[2024-03-18] MEDS ORDERED: ONDA-243 PO (13:00)
[2024-03-18 14:04] VITALS: BP 135/81; PULSE 78; RESP 18; TEMP 98.2; O2SAT 98
== END 2024-03-18 14:04 | disposition home or self-care (01) ==
LOC: EDH 11:30
DX: B34.9 Viral infection, unspecified (principal); R11.2 Nausea with vomiting, unspecified; F17.200 Nicotine dependence, unspecified, uncomplicated; J45.909 Unspecified asthma, uncomplicated; F31.9 Bipolar disorder, unspecified; Z79.899 Other long term (current) drug therapy
CPT/HCPCS: 99283; 96374; 96361; 80076; 80048; 83690; 85025; 81003; 36415; J7030; J2765

== ENCOUNTER 2024-03-24 20:02 | Emergency (ER) | payer MEDICAID ==
[~2024-03-24] VITALS: Ht 188 cm; Wt 88.5 kg
--- NOTE | 2024-03-24 20:18 | ERN ---
General Chief Complaint: Abdominal Pain Stated Complaint: ABD PAIN X 3 HOURS Time Seen by MD: 20:04 History of Present Illness Initial Comments 28-year-old male presents to the ED for evaluation of vomiting onset 1 day ago. Patient reports nausea, abdominal pain, but denies any diarrhea or any other associated symptoms at this time. Patient states pain began after eating tacos last night stating his girlfriend also has similar symptoms. Hx Bipolar, gastritis Allergies: Coded Allergies: No Known Allergies (Unverified Allergy, Unknown, 10/18/22) Home Meds Active Scripts Ondansetron (Ondansetron Odt) 4 Mg Tab.rapdis, 1 TAB PO Q6HPRN PRN for nausea/vomiting for 4 Days, #10 TAB 0 Refills Prov:MARIANO RIOS DO 03/18/24 Sucralfate (Carafate) 1 Gram Tablet, 1 TAB PO QID for 10 Days, #40 TAB 0 Refills Prov:HERMINIO WILKINS NP 02/27/24 Omeprazole (Omeprazole) 40 Mg Capsule.dr, 1 CAP PO DAILY for 30 Days, #30 CAP 0 Refills Prov:HERMINIO WILKINS NP 02/27/24 Ketorolac Tromethamine (Ketorolac Tromethamine) 10 Mg Tablet, 10 MG PO BID for 5 Days, #10 TAB Prov:BARI AG 01/16/24 Methylprednisolone (Medrol) 4 Mg Tab.ds.pk, 4 MG PO AD, #1 UNIT Prov:HERMINIO WILKINS NP 12/27/23 Amoxicillin/Potassium Clav (Amox Tr-K Clv 875-125 mg Tab) 875 Mg-125 Mg Tablet, 1 EACH PO BID for 7 Days, #14 TAB 0 Refills Prov:HERMINIO WILKINS NP 12/27/23 Ondansetron (Ondansetron Odt) 4 Mg Tab.rapdis, 4 MG PO Q6HPRN PRN for nausea, #16 TAB 0 Refills Prov:JU WILLIS MD 12/10/23 Famotidine (Pepcid) 20 Mg Tablet, 20 MG PO BID for 14 Days, #28 TAB 0 Refills Prov:ABNER MURRELL DO 11/16/23 Ondansetron (Ondansetron Odt) 4 Mg Tab.rapdis, 4 MG PO TID PRN for nausea/vomiting for 7 Days, #10 TAB 0 Refills Prov:ABNER MURRELL DO 11/16/23 Ketorolac Tromethamine (Ketorolac Tromethamine) 10 Mg Tablet, 10 MG PO Q6HPRN PRN for PAIN for 7 Days, #28 TAB Prov:ABNER MURRELL DO 11/16/23 Cyclobenzaprine HCl (Flexeril) 10 Mg Tab, 10 MG PO TID PRN for muscle spasm for 7 Days, #21 TAB 0 Refills Prov:ABNER MURRELL DO 11/16/23 Pantoprazole Sodium (Protonix) 20 Mg Tablet.dr, 20 MG PO DAILY, #7 TAB Prov:EDUARD ONOFRE 10/24/23 Ondansetron (Ondansetron Odt) 4 Mg Tab.rapdis, 4 MG PO TID for Vomiting, #10 TAB Prov:MARIANO RIOS DO 10/12/23 Diphenhydramine HCl (Benadryl) 50 Mg Cap, 50 MG PO Q6H for itching/rash, #20 CAP 0 Refills Prov:JU WILLIS MD 09/21/23 Lidocaine (Lidocaine Pain Relief) 4 % Adh..patch, 1 EACH TP DAILY for 5 Days, #5 ADH.PATCH Prov:HUNTER MARIA 08/02/23 Naproxen (Naproxen) 500 Mg Tablet, 500 MG PO BID for 5 Days, #10 TAB Prov:HUNTER MARIA 08/02/23 Cyclobenzaprine HCl (Cyclobenzaprine HCl) 5 Mg Tablet, 5 MG PO DAILYDINNER for 5 Days, #5 TAB Prov:HUNTER MARIA 08/02/23 Azithromycin (Azithromycin) 250 Mg Tablet, 250 MG PO DAILY, #6 TAB Take 2 now then 1 daily until complete. Prov:SMITH MCMAHON 05/07/23 D-Methorphan Hb/P-Epd HCl/Bpm (Bromfed Dm Cough Syrup) 2 Mg-30 Mg-10 Mg/5 Ml Syrup, 10 ML PO Q4HPRN PRN for COUGH for 10 Days, #100 ML Prov:SMITH MCMAHON 05/07/23 Cyclobenzaprine HCl (Cyclobenzaprine HCl) 5 Mg Tablet, 5 MG PO DAILYDINNER, #15 TAB Prov:CHELY RAMIREZ PAC 12/14/22 Naproxen (Naprosyn) 500 Mg Tablet, 500 MG PO BIDPC for 10 Days, #20 TAB 0 Refills Prov:CHELY RAMIREZ PAC 12/13/22 D-Methorphan Hb/P-Epd HCl/Bpm (Bromfed Dm Cough Syrup) 118 Ml Syrup, 10 ML PO Q6HPRN PRN for cough for 5 Days, #200 ML Prov:NOBLE [facility] 12/10/22 Ondansetron (Ondansetron Odt) 4 Mg Tab.rapdis, 4 MG PO Q6HPRN PRN for nausea/vomiting, #10 TAB 0 Refills Prov:ROCÍO MINAYA NP 12/04/22 Ondansetron (Ondansetron Odt) 4 Mg Tab.rapdis, 4 MG PO TID, #8 TAB Prov:ANNA COELHO MD 12/02/22 Ondansetron (Ondansetron Odt) 4 Mg Tab.rapdis, 4 MG PO TID for 2 Days, #8 TAB Prov:SMITH MCMAHON [facility] 11/25/22 Metoclopramide HCl (Reglan 10 mg Tab) 10 Mg Tablet, 10 MG PO Q6HPRN PRN for nausea, #30 TAB 0 Refills Prov:ROCÍO MINAYA NP 11/22/22 Pantoprazole Sodium (Protonix) 40 Mg Ectab, 40 MG PO DAILY, #14 TAB.EC 0 Refills Prov:ROCÍO MINAYA NP 11/22/22 Cyclobenzaprine HCl (Flexeril) 10 Mg Tab, 10 MG PO TID for 3 Days, #9 TAB Prov:SMITH MCMAHON [facility] 10/18/22 Ibuprofen (Ibuprofen) 600 Mg Tablet, 600 MG PO Q6H PRN for PAIN, #30 TAB Prov:SMITH MCMAHON [facility] 10/18/22 Past Medical History Past Medical History: Asthma, Bipolar, Seizure Medical History Other: ADHD , GASTRITIS Past Surgical History: Other Family History Family History: HTN Social History Social History: Smokers, Lives with family ROS Dictation CONSTITUTIONAL: Negative except for HPI HEAD/FACE: Negative except for HPI EENT: Negative except for HPI RESPIRATORY: Negative except for HPI GASTROINTESTINAL/ABDOMINAL: Epigastric pain and vomiting GENITOURINARY: Negative except for HPI MUSCULOSKELETAL: Negative except for HPI INTEGUMENTARY: Negative except for HPI NEUROLOGICAL/PSYCH: Negative except for HPI HEMATOLOGIC/LYMPHATIC: Negative except for HPI All Systems Negative, Except as noted above. 13 point review of systems assessed and all negative except for above. Physical Exam Physical Exam Dictation PHYSICAL EXAM: GENERAL: alert,, awake oriented x 3 HEENT: EOMI, Sclera non icteric, moist mucosa NECK: Supple, no JVD, trachea midline LUNGS: Clear breath sounds bilaterally. No wheezes HEART: Regular rate and rhythm. Normal S1 and S2, without murmurs ABD: Abdomen soft, nontender. Bowel sounds present EXT: No clubbing or cyanosis, NEURO: Alert and oriented to person, follows commands MDM CC: Generalized abdominal pain and vomiting. Historian: Patient Comorbidities: bipolar limitations by social determinates: None concern for gastritis versus viral illness Vital signs stable Abdomen soft nontender. Patient nontoxic appearance. I have seen this patient before. Very familiar with her. She comes frequently for similar complaints. No indication for labs or imaging in his time. She received p.o. Zofran and Bentyl and Tylenol. She feel tolerant she is nontoxic. We will DC. Exam we will give a prescription for Zofran. ED Course Orders Procedure Category Date Status Time Ondansetron Odt 4mg PHA 03/24/24 Complete Tab (Zofran 4mg Odt) 20:30 Dicyclomine Hcl PHA 03/24/24 Complete (Bentyl 20mg Tab) 20:30 Acetaminophen 500mg PHA 03/24/24 Complete Tab (Tylenol 500mg T 20:30 Vital Signs Date Time Temp Pulse Resp B/P (MAP) Pulse Ox O2 Delivery O2 Flow Rate FiO2 03/24/24 20:27 98.8 76 16 132/74 100 Room Air* 0 21 03/24/24 20:21 98.8 76 16 132/74 100 Room Air 0 DX & DISP Disposition: Discharge Departure Impression: Primary Impression: Acute gastritis Condition: Stable Additional Instructions: Your symptoms are consistent with gastritis. Your vital signs are stable Monitor your diet. Eats small frequent meals rather than large meals. Avoid irritating foods. Drink plenty of liquids. Gatorade this may choice. I have prescribed ondansetron dissolvable tabs. You can take this 3 times per day for the next couple of days she prevent vomiting. Please follow up with your primary doctor. Referrals: ALY MELGOZA JR, MD (PCP) MARIANO RIOS DO Mar 24, 2024 20:18
[2024-03-24 20:27] VITALS: BP 132/74; PULSE 76; RESP 16; TEMP 98.7; O2SAT 100
[2024-03-24] MEDS: ondanSETRON ODT 4MG TAB SL ONE (20:34)
[2024-03-24] MEDS: DICYCLOMINE HCL 20 MG TAB PO ONE (20:34)
[2024-03-24] MEDS: acetaMINOPHEN 500 MG TABLET PO ONE (20:35)
== END 2024-03-24 21:02 | disposition home or self-care (01) ==
LOC: EDH 20:02
DX: K29.00 Acute gastritis without bleeding (principal); J45.909 Unspecified asthma, uncomplicated; F31.9 Bipolar disorder, unspecified; F17.200 Nicotine dependence, unspecified, uncomplicated; Z79.899 Other long term (current) drug therapy

== ENCOUNTER 2024-04-29 01:57 | Emergency (ER) | payer MEDICAID ==
[~2024-04-29] VITALS: Ht 185.4 cm; Wt 83.9 kg
[2024-04-29 02:20] LABS: BASOPHILS # (AUTO) 0.05 K/uL (0.00-0.20); BASOPHILS % (AUTO) 0.5 % (0.0-5.0); EOSINOPHILS # (AUTO) 0.14 K/uL (0.00-0.70); EOSINOPHILS % (AUTO) 1.5 % (0.0-8.0); HEMATOCRIT 42.7 % (42-54); IMMATURE GRANULOCYTE ABSOLUTE 0.02 K/uL (0-1); LYMPHOCYTES % (AUTO) 21.6 % (21.0-51.0); MEAN CORPUSCULAR HEMOGLOBIN 30.1 pg (27.0-33.0); MEAN CORPUSCULAR HGB CONC 34.7 g/dL (32.0-36.0); MONOCYTES # (AUTO) 0.7 K/uL (0.1-1.0); MONOCYTES % (AUTO) 7.1 % (3.0-13.0); NEUTROPHILS # (AUTO) 6.4 K/uL (1.8-7.7); NEUTROPHILS % (AUTO) 69.1 % (40.0-77.0); PLATELET COUNT (AUTO) 230 K/uL (130-400); RED BLOOD CELL COUNT(AUTO) 4.91 MIL/uL (4.50-6.20); RED CELL DISTRIBUTION WIDTH 12.1 % (11.0-15.5); WHITE BLOOD COUNT (AUTO) 9.2 K/uL (4.8-10.8)
[2024-04-29] MEDS ORDERED: LORazepam 2 MG/ML 1 ML VIAL IVP PRN (02:30)
[2024-04-29 02:32] LABS: POTASSIUM 4.1 mmol/L (3.5-5.1)
[2024-04-29] MEDS: LACTATED RINGERS 1000ML 1,000 ML IV ONE (02:40)
[2024-04-29 02:41] LABS: AMPHET/METH SCREEN,URINE NEGATIVE (NEGATIVE); BARBITURATE SCREEN, URINE NEGATIVE (NEGATIVE); BENZODIAZEPINES SCREEN,URINE NEGATIVE (NEGATIVE); CANNABINOID SCREEN,URINE NEGATIVE (NEGATIVE); COCAINE SCREEN,URINE NEGATIVE (NEGATIVE); OPIATE SCREEN,URINE NEGATIVE (NEGATIVE); PHENCYCLIDINE SCREEN,URINE NEGATIVE (NEGATIVE)
[2024-04-29 02:44] LABS: B-TYPE NATRIURETIC PEPTIDE < 5 pg/mL (0-100)
[2024-04-29] MEDS: LORazepam 2 MG/ML 1 ML VIAL IVP ONE (02:45)
--- NOTE | 2024-04-29 02:49 | ERN ---
General Chief Complaint: Chest Pain Stated Complaint: CHEST PAIN, SOB Time Seen by MD: 02:06 History of Present Illness Initial Comments 28-year-old male with significant history of anxiety and bipolar disorder comes in with a chief complaint of chest pain. Patient describes chest pain of the left side of his chest and does not radiate. He describes the pain as moderate. Denies any other associated symptoms. Allergies: Coded Allergies: No Known Allergies (Unverified Allergy, Unknown, 10/18/22) Home Meds Active Scripts Ondansetron (Ondansetron Odt) 4 Mg Tab.rapdis, 1 TAB PO Q6HPRN PRN for nausea/vo miting for 4 Days, #10 TAB 0 Refills Prov:MARIANO RIOS DO 03/18/24 Sucralfate (Carafate) 1 Gram Tablet, 1 TAB PO QID for 10 Days, #40 TAB 0 Refills Prov:HERMINIO WILKINS NP 02/27/24 Omeprazole (Omeprazole) 40 Mg Capsule.dr, 1 CAP PO DAILY for 30 Days, #30 CAP 0 Refills Prov:HERMINIO WILKINS NP 02/27/24 Ketorolac Tromethamine (Ketorolac Tromethamine) 10 Mg Tablet, 10 MG PO BID for 5 Days, #10 TAB Prov:BARI AG 01/16/24 Methylprednisolone (Medrol) 4 Mg Tab.ds.pk, 4 MG PO AD, #1 UNIT Prov:HERMINIO WILKINS NP 12/27/23 Amoxicillin/Potassium Clav (Amox Tr-K Clv 875-125 mg Tab) 875 Mg-125 Mg Tablet, 1 EACH PO BID for 7 Days, #14 TAB 0 Refills Prov:HERMINIO WILKINS NP 12/27/23 Ondansetron (Ondansetron Odt) 4 Mg Tab.rapdis, 4 MG PO Q6HPRN PRN for nausea, #16 TAB 0 Refills Prov:JU WILLIS MD 12/10/23 Famotidine (Pepcid) 20 Mg Tablet, 20 MG PO BID for 14 Days, #28 TAB 0 Refills Prov:ABNER MURRELL DO 11/16/23 Ondansetron (Ondansetron Odt) 4 Mg Tab.rapdis, 4 MG PO TID PRN for nausea/vomiting for 7 Days, #10 TAB 0 Refills Prov:ABNER MURRELL DO 11/16/23 Ketorolac Tromethamine (Ketorolac Tromethamine) 10 Mg Tablet, 10 MG PO Q6HPRN PRN for PAIN for 7 Days, #28 TAB Prov:ABNER MURRELL DO 11/16/23 Cyclobenzaprine HCl (Flexeril) 10 Mg Tab, 10 MG PO TID PRN for muscle spasm for 7 Days, #21 TAB 0 Refills Prov:ABNER MURRELL DO 11/16/23 Pantoprazole Sodium (Protonix) 20 Mg Tablet.dr, 20 MG PO DAILY, #7 TAB Prov:EDUARD ONOFRE 10/24/23 Ondansetron (Ondansetron Odt) 4 Mg Tab.rapdis, 4 MG PO TID for Vomiting, #10 TAB Prov:MARIANO RIOS DO 10/12/23 Diphenhydramine HCl (Benadryl) 50 Mg Cap, 50 MG PO Q6H for itching/rash, #20 CAP 0 Refills Prov:JU WILLIS MD 09/21/23 Lidocaine (Lidocaine Pain Relief) 4 % Adh..patch, 1 EACH TP DAILY for 5 Days, #5 ADH.PATCH Prov:HUNTER MARIA 08/02/23 Naproxen (Naproxen) 500 Mg Tablet, 500 MG PO BID for 5 Days, #10 TAB Prov:HUNTER MARIA 08/02/23 Cyclobenzaprine HCl (Cyclobenzaprine HCl) 5 Mg Tablet, 5 MG PO DAILYDINNER for 5 Days, #5 TAB Prov:HUNTER MARIA 08/02/23 Azithromycin (Azithromycin) 250 Mg Tablet, 250 MG PO DAILY, #6 TAB Take 2 now then 1 daily until complete. Prov:SMITH MCMAHON 05/07/23 D-Methorphan Hb/P-Epd HCl/Bpm (Bromfed Dm Cough Syrup) 2 Mg-30 Mg-10 Mg/5 Ml Syrup, 10 ML PO Q4HPRN PRN for COUGH for 10 Days, #100 ML Prov:SMITH MCMAHON 05/07/23 Cyclobenzaprine HCl (Cyclobenzaprine HCl) 5 Mg Tablet, 5 MG PO DAILYDINNER, #15 TAB Prov:CHELY RAMIREZ PAC 12/14/22 Naproxen (Naprosyn) 500 Mg Tablet, 500 MG PO BIDPC for 10 Days, #20 TAB 0 Refills Prov:CHELY RAMIREZ PAC 12/13/22 D-Methorphan Hb/P-Epd HCl/Bpm (Bromfed Dm Cough Syrup) 118 Ml Syrup, 10 ML PO Q6HPRN PRN for cough for 5 Days, #200 ML Prov:NOBLE M[facility] 12/10/22 Ondansetron (Ondansetron Odt) 4 Mg Tab.rapdis, 4 MG PO Q6HPRN PRN for na usea/vomiting, #10 TAB 0 Refills Prov:ROCÍO MINAYA NP 12/04/22 Ondansetron (Ondansetron Odt) 4 Mg Tab.rapdis, 4 MG PO TID, #8 TAB Prov:ANNA COELHO MD 12/02/22 Ondansetron (Ondansetron Odt) 4 Mg Tab.rapdis, 4 MG PO TID for 2 Days, #8 TAB Prov:SMITH MCMAHON [facility] 11/25/22 Metoclopramide HCl (Reglan 10 mg Tab) 10 Mg Tablet, 10 MG PO Q6HPRN PRN for nausea, #30 TAB 0 Refills Prov:ROCÍO MINAYA NP 11/22/22 Pantoprazole Sodium (Protonix) 40 Mg Ectab, 40 MG PO DAILY, #14 TAB.EC 0 Refills Prov:ROCÍO MINAYA NP 11/22/22 Cyclobenzaprine HCl (Flexeril) 10 Mg Tab, 10 MG PO TID for 3 Days, #9 TAB Prov:SMITH MCMAHON [facility] 10/18/22 Ibuprofen (Ibuprofen) 600 Mg Tablet, 600 MG PO Q6H PRN for PAIN, #30 TAB Prov:SMITH MCMAHON [facility] 10/18/22 Past Medical History Past Medical History: Anxiety, Asthma, Bipolar, Depression, Seizure Medical History Other: ADHD , GASTRITIS Past Surgical History: None Family History Family History: HTN Social History Social History: Smokers, Lives with family ROS Dictation Constitutional: Negative for fever,chills, and weight loss Eyes: Negative for injury, pain,redness, and discharge ENT: Negative for injury,pain or swelling Cardiovascular: Positive for chest pain Respiratory: Negative for shortness of breath, cough, and wheezing, Abdomen/GI: Negative for abdominal pain, nausea, vomiting, diarrhea, and constipation Back: Negative for injury and pain : Negative for injury, bleeding and discharge MS/Extremity: Negative for injury and deformity Skin: Negative for rash, and discoloration Neuro: Negative for headache, weakness, numbness, tingling, and seizure Psych: Negative for suicide ideation, homicidal ideation, and hallucinations Physical Exam Physical Exam Dictation General: awake, alert, NAD Head/Face: Normocephalic, atraumatic Eyes: PERRL, EOMI, vision at baseline ENT: oral cavity clear, TMs clear, no signs of infection Neck: Trachea midline, supple, Cardiovascular: RRR, normal S1/S2, No MRGs, no JVD Respiratory: CTAB, no respiratory distress, No rales or wheezes Abdomen: Soft, non-tender, non-distended, normal bowel sounds Skin: Warm, dry, normal turgor, no rash MS/Extremity: Pulses equal, no cyanosis Neuro: COAx4, GCS 15, strength 5/5, CN 2-12 intact, normal cerebellar exam, normal gait, Psych: Pressured speech Results Laboratory and Microbiology Lab and Micro Result Laboratory Tests Test 04/29/24 02:01 04/29/24 02:27 04/29/24 02:34 White Blood Count 9.2 K/uL (4.8-10.8) Red Blood Count 4.91 MIL/uL (4.50-6.20) Hemoglobin 14.8 g/dL (14.0-18.0) Hematocrit 42.7 % (42-54) Mean Corpuscular Volume 87.0 fL (79-99) Mean Corpuscular Hemoglobin 30.1 pg (27.0-33.0) Mean Corpuscular Hemoglobin Concent 34.7 g/dL (32.0-36.0) Red Cell Distribution Width 12.1 % (11.0-15.5) Platelet Count 230 K/uL (130-400) Mean Platelet Volume 9.7 fL (7.5-10.5) Immature Granulocyte % (Auto) 0.2 % (0-1) Neutrophils (%) (Auto) 69.1 % (40.0-77.0) Lymphocytes (%) (Auto) 21.6 % (21.0-51.0) Monocytes (%) (Auto) 7.1 % (3.0-13.0) Eosinophils (%) (Auto) 1.5 % (0.0-8.0) Basophils (%) (Auto) 0.5 % (0.0-5.0) Neutrophils # (Auto) 6.4 K/uL (1.8-7.7) Lymphocytes # (Auto) 2.0 K/uL (1.0-4.8) Monocytes # (Auto) 0.7 K/uL (0.1-1.0) Eosinophils # (Auto) 0.14 K/uL (0.00-0.70) Basophils # (Auto) 0.05 K/uL (0.00-0.20) Absolute Immature Granulocyte (auto 0.02 K/uL (0-1) Nucleated Red Blood Cells 0.0 % (0.0-0.19) Sodium Level 144 mmol/L (136-145) Potassium Level 4.1 mmol/L (3.5-5.1) Chloride Level 107 mmol/L (101-111) Carbon Dioxide Level 33 mmol/L (21-32) H Blood Urea Nitrogen 19 mg/dL (7-18) H Creatinine 1.0 mg/dL (0.5-1.3) Glomerular Filtration Rate Calc 106 mL/min (>90) Random Glucose 103 mg/dL (70-105) Total Calcium 9.3 mg/dL (8.5-10.1) Troponin I High Sensitivity 5 ng/L (4-75) B-Type Natriuretic Peptide < 5 pg/mL (0-100) Urine Opiates Screen NEGATIVE (NEGATIVE) Urine Barbiturates Screen NEGATIVE (NEGATIVE) Urine Phencyclidine Screen NEGATIVE (NEGATIVE) Urine Amphetamines Screen NEGATIVE (NEGATIVE) Urine Benzodiazepines Screen NEGATIVE (NEGATIVE) Urine Cocaine Screen NEGATIVE (NEGATIVE) Urine Marijuana (THC) Screen NEGATIVE (NEGATIVE) Troponin I < 0.05 ng/mL (0.00-0.05) MDM Patient reports chest pain is no longer present. Patient was troponins are reassuring. Patient will be discharged MDM: Differential diagnosis: Noncardiac chest pain Rationale: Tests considered and ordered secondary to shared decision making include: Previous outside records reviewed: Old ER visits. Risk of complication and/or morbidity or mortality of patient management: None Medications-Per medication reconciliation Need for hospitalization: Patient does not meet criteria for hospitalization. Need for emergency major/minor surgery: No There are no social concerns with this patient. Prescription drug management Prescriptions will include symptomatic care Patient's prior external medical records from other ER visits were reviewed by me as indicated. Prior testing and results from previous visits were reviewed. Prior tests were taken into account with medical decision making and resource utilization, independent historian/historians were used to obtain complete medical history. I independently interpreted the test that were performed, results were reviewed by me and considered findings on radiology if ordered. Medical management and examination interpretation discussions were had by me with other qualified healthcare professionals as indicated for the patient's care. ED Course Orders Procedure Category Date Status Time Chest 1vw RAD 04/29/24 Taken 01:59 Troponin I High LAB 04/29/24 Complete Sensitivity 01:59 12 Lead Ekg Tracing- EKG 04/29/24 Logged Technical 01:59 Cbc With Differential LAB 04/29/24 Complete 02:00 B-Type Natriuretic LAB 04/29/24 Complete Peptide 02:00 Lactated Ringers PHA 04/29/24 Complete 1000ml (Lactated 02:00 Basic Metabolic Panel LAB 04/29/24 Complete 02:00 Drug Screen Urine LAB 04/29/24 Complete 02:00 Lorazepam 2 Mg PHA 04/29/24 Complete (Ativan) 02:30 Lorazepam 2 Mg PHA 04/29/24 Complete (Ativan) 02:30 Current Medications Medications (Trade) Dose Ordered Sig/Lisa Route PRN Reason Start Time Stop Time Status Last Admin Dose Admin Lactated Ringer's 1,000 ml @ 0 mls/hr ONCE ONCE IV 04/29/24 02:00 04/29/24 02:01 DC 04/29/24 02:40 Lorazepam (AtiVAN) 1 mg ONCE ONCE IVP 04/29/24 02:30 04/29/24 02:31 DC 04/29/24 02:45 Lorazepam (AtiVAN) 1 mg Q1H PRN IVP ANXIETY/AGITATION 04/29/24 02:30 04/29/24 02:13 DC Vital Signs Date Time Temp Pulse Resp B/P (MAP) Pulse Ox O2 Delivery O2 Flow Rate FiO2 04/29/24 02:31 98.2 71 18 123/79 99 Room Air* 0 21 04/29/24 01:58 98.2 82 16 119/93 98 Room Air DX & DISP Disposition: Discharge Departure Impression: Primary Impression: Non-cardiac chest pain Condition: Stable Additional Instructions: Please follow up with your primary care physician in the next 1-7 days for continuance of care. Referrals: ALY MELGOZA JR, MD (PCP) RYAN HOFFMAN MD Apr 29, 2024 02:49
[2024-04-29 03:20] VITALS: BP 112/71; PULSE 65; RESP 16; TEMP 98; O2SAT 98
--- NOTE | 2024-04-29 08:35 | HMCIMG ---
CHEST 1VW REASON: CHEST PAIN, SOB COMPARISON: 12/27/2023 FINDINGS: Single view of the chest was obtained. Lungs are clear. Heart size is normal. There is no pulmonary vascular congestion. Mediastinum and bony thorax appear unremarkable. IMPRESSION: 1. Normal single view chest x-ray.
--- NOTE | 2024-04-30 07:30 | EKG ---
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
== END 2024-04-29 03:28 | disposition home or self-care (01) ==
LOC: EDH 01:57
DX: R07.89 Other chest pain (principal); J45.909 Unspecified asthma, uncomplicated; F41.9 Anxiety disorder, unspecified; F31.9 Bipolar disorder, unspecified; F17.200 Nicotine dependence, unspecified, uncomplicated; Z79.899 Other long term (current) drug therapy
CPT/HCPCS: 99285; 96374; 71045; 96361; 84484 ×2; 80048; 83880; 80305; 85025; 36415; 93005; J7120; J2060

== ENCOUNTER 2024-05-03 11:53 | Emergency (ER) | payer OTHER, MEDICAID ==
[~2024-05-03] VITALS: Ht 185.4 cm; Wt 83.9 kg
[2024-05-03] MEDS: ketOROlac 15MG/ML VIAL (15MG/ML) IM ONE (12:42)
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
[2024-05-03] MEDS ORDERED: LIDO1ADH71 TP (14:43)
[2024-05-03] MEDS ORDERED: ORPH100T4 PO (14:43)
[2024-05-03] MEDS ORDERED: IBUP-2077 PO (14:43)
[2024-05-03 14:59] VITALS: BP 115/69; PULSE 74; RESP 16; TEMP 97.5; O2SAT 100
--- NOTE | 2024-05-03 15:00 | HMCIMG ---
Exam: CERVICAL SPINE 2 VIEWS REASON: pain TECHNIQUE: 3 views were obtained. FINDINGS: There are normal appearing vertebral bodies. Interspace heights are well preserved. There are no visible fractures. Soft tissues appear unremarkable. IMPRESSION: 1. Normal views of the cervical spine.
--- NOTE | 2024-05-03 15:00 | HMCIMG ---
EXAM: LUMBAR SPINE 2-3VWS REASON: injury. COMPARISON: None. TECHNIQUE: 3 views of the lumbar spine were obtained. FINDINGS: There is normal appearance of the lumbar vertebral bodies. Disc interspace heights are preserved. Alignment is normal. There are no visible fractures. Soft tissues appear unremarkable. IMPRESSION: 1. Normal lumbar spine.
== END 2024-05-03 15:00 | disposition home or self-care (01) ==
LOC: EDH 11:53
DX: S13.4XXA Sprain of ligaments of cervical spine, initial encounter (principal); M54.50 Low back pain, unspecified; F17.200 Nicotine dependence, unspecified, uncomplicated; J45.909 Unspecified asthma, uncomplicated; Z79.899 Other long term (current) drug therapy; V89.2XXA Person injured in unspecified motor-vehicle accident, traffic, initial encounter; Y93.89 Activity, other specified; Y92.488 Other paved roadways as the place of occurrence of the external cause; Y99.8 Other external cause status
CPT/HCPCS: 99284; 72040; 72100; 96372; J1885

== ENCOUNTER 2024-06-03 20:58 | Emergency (ER) | payer MEDICAID ==
[~2024-06-03] VITALS: Ht 188 cm; Wt 90.7 kg
[~2024-06-03 20:58] MED LIST changes: +IBUP-2077 PO; +ORPH100T4 PO
--- NOTE | 2024-06-03 21:31 | ERN ---
ED Note History of Present Illness Stated Complaint: MULT COMPL Chief Complaint: Multiple Complaints Time Seen by MD: 21:02 Dictation: PATIENT IS A 28-YEAR-OLD MALE WHO WAS WELL KNOWN TO [facility] [place] COMING IN WITH COMPLAINTS OF DRIVING TO [place] TO GET SOME CANDY AND HE THOUGHT HE WAS GOING TO LOSE VISION IN HIS LEFT EYE. HE STATES HE WOULD NOT LOSE THE VISION AND HE THEN HE THOUGHT HE MIGHT BE HAVING A SEIZURE. PATIENT DOES NOT HAVE A HIS HISTORY OF VISION CHANGES, SAID HE LOST HIS GLASSES OVER A YEAR AGO. NIH IS 0 EOMS ARE INTACT NO HEADACHE NO FIELD CUTS Allergies: Coded Allergies: bee venom protein (honey bee) (Unverified Allergy, Intermediate, 05/22/24) Home Meds Active Scripts Ibuprofen (Ibuprofen 800 mg Tab) 800 Mg Tab, 800 MG PO Q6H PRN for PAIN, #30 TAB Prov:MARIANO RIOS DO 05/03/24 Orphenadrine Citrate (Orphenadrine Citrate) 100 Mg Tablet.er, 1 TAB PO [id number] PRN for pain for 30 Days, #60 TAB 0 Refills Prov:MARIANO RIOS DO 05/03/24 Lidocaine (Lidocaine Pain Relief) 4 % Adh..patch, 1 EACH TP BID PRN for PAIN for 10 Days, #10 ADH.PATCH Prov:MARIANO RIOS DO 05/03/24 Ondansetron (Ondansetron Odt) 4 Mg Tab.rapdis, 1 TAB PO Q6HPRN PRN for brian sea/vomiting for 4 Days, #10 TAB 0 Refills Prov:MARIANO RIOS DO 03/18/24 Sucralfate (Carafate) 1 Gram Tablet, 1 TAB PO QID for 10 Days, #40 TAB 0 Refills Prov:HERMINIO WILKINS NP 02/27/24 Omeprazole (Omeprazole) 40 Mg Capsule.dr, 1 CAP PO DAILY for 30 Days, #30 CAP 0 Refills Prov:HERMINIO WILKINS NP 02/27/24 Ketorolac Tromethamine (Ketorolac Tromethamine) 10 Mg Tablet, 10 MG PO BID for 5 Days, #10 TAB Prov:BARI AG 01/16/24 Methylprednisolone (Medrol) 4 Mg Tab.ds.pk, 4 MG PO AD, #1 UNIT Prov:HERMINIO WILKINS NP 12/27/23 Amoxicillin/Potassium Clav (Amox Tr-K Clv 875-125 mg Tab) 875 Mg-125 Mg Tablet, 1 EACH PO BID for 7 Days, #14 TAB 0 Refills Prov:HERMINIO WILKINS EDI PROGRAMMER ANALYST 12/27/23 Ondansetron (Ondansetron Odt) 4 Mg Tab.rapdis, 4 MG PO Q6HPRN PRN for nausea, #16 TAB 0 Refills Prov:JU WILLIS MD 12/10/23 Famotidine (Pepcid) 20 Mg Tablet, 20 MG PO BID for 14 Days, #28 TAB 0 Refills Prov:ABNER MURRELL DO 11/16/23 Ondansetron (Ondansetron Odt) 4 Mg Tab.rapdis, 4 MG PO TID PRN for nausea/vomiting for 7 Days, #10 TAB 0 Refills Prov:ABNER MURRELL DO 11/16/23 Ketorolac Tromethamine (Ketorolac Tromethamine) 10 Mg Tablet, 10 MG PO Q6HPRN PRN for PAIN for 7 Days, #28 TAB Prov:ABNER MURRELL DO 11/16/23 Cyclobenzaprine HCl (Flexeril) 10 Mg Tab, 10 MG PO TID PRN for muscle spasm for 7 Days, #21 TAB 0 Refills Prov:ABNER MURRELL DO 11/16/23 Pantoprazole Sodium (Protonix) 20 Mg Tablet.dr, 20 MG PO DAILY, #7 TAB Prov:EDUARD ONOFRE 10/24/23 Ondansetron (Ondansetron Odt) 4 Mg Tab.rapdis, 4 MG PO TID for Vomiting, #10 TAB Prov:MARIANO RIOS DO 10/12/23 Diphenhydramine HCl (Benadryl) 50 Mg Cap, 50 MG PO Q6H for itching/rash, #20 CAP 0 Refills Prov:JU WILLIS MD 09/21/23 Lidocaine (Lidocaine Pain Relief) 4 % Adh..patch, 1 EACH TP DAILY for 5 Days, #5 ADH.PATCH Prov:HUNTER MARIA 08/02/23 Naproxen (Naproxen) 500 Mg Tablet, 500 MG PO BID for 5 Days, #10 TAB Prov:HUNTER MARIA 08/02/23 Cyclobenzaprine HCl (Cyclobenzaprine HCl) 5 Mg Tablet, 5 MG PO DAILYDINNER for 5 Days, #5 TAB Prov:HUNTER MARIA 08/02/23 Azithromycin (Azithromycin) 250 Mg Tablet, 250 MG PO DAILY, #6 TAB Take 2 now then 1 daily until complete. Prov:SMITH MCMAHON [facility] 05/07/23 D-Methorphan Hb/P-Epd HCl/Bpm (Bromfed Dm Cough Syrup) 2 Mg-30 Mg-10 Mg/5 Ml Sy rup, 10 ML PO Q4HPRN PRN for COUGH for 10 Days, #100 ML Prov:SMITH MCMAHON [facility] 05/07/23 Cyclobenzaprine HCl (Cyclobenzaprine HCl) 5 Mg Tablet, 5 MG PO DAILYDINNER, #15 TAB Prov:CHELY RAMIREZ [facility] 12/14/22 Naproxen (Naprosyn) 500 Mg Tablet, 500 MG PO BIDPC for 10 Days, #20 TAB 0 Refills Prov:CHELY RAMIREZ [facility] 12/13/22 D-Methorphan Hb/P-Epd HCl/Bpm (Bromfed Dm Cough Syrup) 118 Ml Syrup, 10 ML PO Q6HPRN PRN for cough for 5 Days, #200 ML Prov:NOBLE MCCLOUD [facility] 12/10/22 Ondansetron (Ondansetron Odt) 4 Mg Tab.rapdis, 4 MG PO Q6HPRN PRN for nausea/vomiting, #10 TAB 0 Refills Prov:ROCÍO MINAYA NP 12/04/22 Ondansetron (Ondansetron Odt) 4 Mg Tab.rapdis, 4 MG PO TID, #8 TAB Prov:ANNA COELHO MD 12/02/22 Ondansetron (Ondansetron Odt) 4 Mg Tab.rapdis, 4 MG PO TID for 2 Days, #8 TAB Prov:SMITH MCMAHON [facility] 11/25/22 Metoclopramide HCl (Reglan 10 mg Tab) 10 Mg Tablet, 10 MG PO Q6HPRN PRN for nausea, #30 TAB 0 Refills Prov:ROCÍO MINAYA NP 11/22/22 Pantoprazole Sodium (Protonix) 40 Mg Ectab, 40 MG PO DAILY, #14 TAB.EC 0 Refills Prov:ROCÍO MINAYA EDI PROGRAMMER ANALYST 11/22/22 Cyclobenzaprine HCl (Flexeril) 10 Mg Tab, 10 MG PO TID for 3 Days, #9 TAB Prov:SMITH MCMAHON V POWER DISTRIBUTION ENGINEER 10/18/22 Ibuprofen (Ibuprofen) 600 Mg Tablet, 600 MG PO Q6H PRN for PAIN, #30 TAB Prov:SMITH MCMAHON V POWER DISTRIBUTION ENGINEER 10/18/22 Past Medical History Past Medical History: Anxiety, Depression, Seizure Additional Past Medical Hx: ADHD , GASTRITIS Surgical History: None Family History: HTN Social History: Smokers, Lives with family RN Note Reviewed/Agreed w/PFSH: Yes Review of System Dictation CONSTITUTIONAL: NEGATIVE EXCEPT FOR HPI HEAD/FACE: NEGATIVE EXCEPT FOR HPI EENT: NEGATIVE EXCEPT FOR HPI QUESTIONABLE VISION CHANGES LEFT EYE RESPIRATORY: NEGATIVE EXCEPT FOR HPI GASTROINTESTINAL/ABDOMINAL: NEGATIVE EXCEPT FOR HPI GENITOURINARY: NEGATIVE EXCEPT FOR HPI MUSCULOSKELETAL: NEGATIVE EXCEPT FOR HPI INTEGUMENTARY: NEGATIVE EXCEPT FOR HPI NEUROLOGICAL/PSYCH: NEGATIVE EXCEPT FOR HPI HEMATOLOGIC/LYMPHATIC: NEGATIVE EXCEPT FOR HPI ALL SYSTEMS NEGATIVE, EXCEPT NOTED ABOVE. 13 POINT REVIEW OF SYSTEMS ASSESSED AND ALL NEGATIVE EXCEPT FOR ABOVE. Initial Vital Sign VS Vital Signs Date Time Temp Pulse Resp B/P (MAP) Pulse Ox O2 Delivery O2 Flow Rate FiO2 06/03/24 21:00 97.9 74 15 134/88 98 Room Air 06/03/24 21:48 0 21 Physical Exam Dictation VITAL SIGNS REVIEWED GENERAL APPEARANCE: ALERT, ORIENTED X 3, NO ACUTE DISTRESS, WELL DEVELOPED, NOURISHED. HEAD AND FACE: NON-TRAUMATIC. EYES: PERRL, PINK CONJUNCTIVAS, EYELID NO TRAUMA, ANTERIOR CHAMBER WITH ARCUS SENILIS. EOMS INTACT LEFT EYE OPTIC NERVE INTACT NO HEMORRHAGE NO VISUAL FIELD CUT EARS: PINNAS INTACT AND NO SIGNS OF TRAUMA OR ERYTHEMA EAR CANALS CLEAR AND NO DISCHARGE TM NO ERYTHEMA NOSE: NO DISCHARGE, NO BLEEDING. OROPHARYNX: MOUTH NORMAL, TONGUE PINK, PHARYNX CLEAR,NO ERYTHEMA, TONSILS NO EXUDATES, NO ABSCESSES NOTED, MUCOUS MEMBRANE MOIST NECK: SUPPLE, NON-TENDER, NO THYROMEGALY, NO MASSES, NO JVD, NO BRUITS BREAST:DEFERRED CHEST:NO TENDERNESS, NO CREPITUS, NO PARADOXICAL MOVEMENT, NO RETRACTIONS LUNGS:CLEAR, WELL-VENTILATED, SYMMETRIC, NO RALES, NO WHEEZING, NO RHONCHI, NO STRIDOR, GOOD BREATH SOUNDS BILATERALLY HEART: REGULAR RATE, REGULAR RHYTHM, NO MURMUR, NO GALLOPS VASCULAR: NO PERIPHERAL EDEMA, ABDOMEN: SOFT, POSITIVE BOWEL SOUNDS, NONDISTENDED, NO GUARDING, NONTENDER, NO REBOUND, NO MASSES NO HEPATOMEGALY, NO SPLENOMEGALY, NO RUBIO'S SIGN, NO HERNIAS. RECTAL: DEFERRED GENITAL: DEFERRED NEUROLOGICAL: NORMAL SPEECH, MOTOR FUNCTION INTACT, SENSORY FUNCTION INTACT MUSCULOSKELETAL: NECK NONTENDER, FULL RANGE OF MOTION, BACK NONTENDER, FULL RANGE OF MOTION, EXTREMITIES: NONTENDER, FULL RANGE OF MOTION SKIN: COLOR PINK, DRY, NO TURGOR, NO RASH, NO LACERATIONS, NO ABRASIONS, NO CONTUSIONS. LYMPHATIC: DEFERRED Results (Laboratory/Radiology) Labs Reviewed?: Yes ED Course ED Course Orders Procedure Category Date Status Time Visual Acuity Test CPOE 06/03/24 Transmitted (Er) 21:30 Vital Signs Date Time Temp Pulse Resp B/P (MAP) Pulse Ox O2 Delivery O2 Flow Rate FiO2 06/03/24 21:48 98.1 70 16 132/80 98 Room Air* 0 21 06/03/24 21:00 97.9 74 15 134/88 98 Room Air 2150 PATIENT DISCHARGED HOME WITH INTACT VISUAL ACUITY. WE WILL HAVE HIM FOLLOW UP WITH [facility] TOMORROW UP Medical Decision Making MDM MEDICAL DISCHARGE MAKING BASED ON VISUAL ACUITY CHECK AND OPHTHALMIC EXAM. VISION IS INTACT PATIENT NEUROLOGICALLY INTACT NO VISUAL FIELD CUTS DX & DISP Disposition: Discharge Departure Impression: Primary Impression: Changes in vision Condition: Stable Additional Instructions: FOLLOW-UP WITH PRIMARY CARE PROVIDER IN 1 TO 2 DAYS. TAKE MEDICATIONS DIRECTED HERE IN THE EMERGENCY ROOM. OKAY TO CONTINUE HOME MEDICATIONS UNLESS OTHERWISE DISCUSSED DURING YOUR VISIT IN THE EMERGENCY ROOM TODAY. RETURN TO YOUR NEAREST EMERGENCY ROOM IF SYMPTOMS WORSEN OR IF THERE IS NO IMPROVEMENT. CALL 911 IF YOU NEED IMMEDIATE ASSISTANCE. TAKE TYLENOL OR MOTRIN [id number] NEEDED AND IF NO CONTRAINDICATIONS ARE PRESENT. INCREASE ORAL HYDRATION. A WOUND CULTURE OR URINE CULTURE WAS ORDERED HERE IN THE EMERGENCY ROOM DEPARTMENT PLEASE FOLLOW-UP WITH PRIMARY CARE PROVIDER AND ADVISE THEM TO GET REPEAT PORTS FROM OUR FACILITY. IF YOU HAD ANY OFELIA WRAP/SPLINTS THAT WERE APPLIED HERE, PLEASE DO NOT REMOVE THEM UNTIL YOU SEE YOUR PRIMARY CARE OR SPECIALTY. CALL [facility] TOMORROW FOR AN APPOINTMENT. SEE YELLOW PAGES FOR THE PHONE NUMBER. Referrals: SELF,REFERRAL (PCP) Time of Disposition: 21:54 I have reviewed the case, and I agree with, Diagnosis and Plan HERMINIO WILKINS EDI PROGRAMMER ANALYST Jun 03, 2024 21:31
[2024-06-03 21:48] VITALS: BP 132/80; PULSE 70; RESP 16; TEMP 98.1; O2SAT 98
--- NOTE | 2024-06-03 21:51 | NUR ---
VISUAL ACUITY TEST RIGHT 20/20 LEFT 20/50
== END 2024-06-03 22:12 | disposition home or self-care (01) ==
LOC: EDH 20:58
DX: H53.9 Unspecified visual disturbance (principal); F41.9 Anxiety disorder, unspecified; F17.200 Nicotine dependence, unspecified, uncomplicated; F32.A Depression, unspecified; Z79.899 Other long term (current) drug therapy; Z91.030 Bee allergy status
CPT/HCPCS: 99282

== ENCOUNTER 2024-06-29 23:17 | Emergency (ER) | payer MEDICAID ==
[~2024-06-29] VITALS: Ht 182.9 cm; Wt 104.3 kg
[2024-06-29 23:19] VITALS: BP 130/101; PULSE 107; RESP 20; TEMP 98.1
--- NOTE | 2024-06-29 23:46 | ERN ---
General Chief Complaint: Cough Stated Complaint: COUGH Time Seen by MD: 23:24 Time Seen by Midlevel: 23:24 Source: patient History of Present Illness Initial Comments Patient is a 28-year-old male presenting to the emergency department for evaluation of a cough that has been ongoing for over a week. His girlfriend is sick with similar symptoms. Denies any fever, chills, or any other symptoms at this time. Allergies: Coded Allergies: bee venom protein (honey bee) (Unverified Allergy, Intermediate, 05/22/24) Home Meds Active Scripts Azithromycin (Azithromycin) 250 Mg Tablet, 1 TAB PO AD for 5 Days, #6 TAB 0 Refills 2 the first day followed by 1 for days 2-5 Prov:BARI AG 06/29/24 Methylprednisolone (Medrol) 4 Mg Tab.ds.pk, 1 TAB PO AD for 6 Days, #21 TAB 0 Refills 6 on day 1 then reduce by one tablet daily until gone Prov:BARI AG 06/29/24 Ibuprofen (Ibuprofen 800 mg Tab) 800 Mg Tab, 800 MG PO Q6H PRN for PAIN, #30 TAB Prov:MARIANO RIOS DO 05/03/24 Orphenadrine Citrate (Orphenadrine Citrate) 100 Mg Tablet.er, 1 TAB PO [id number] PRN for pain for 30 Days, #60 TAB 0 Refills Prov:MARIANO RIOS DO 05/03/24 Lidocaine (Lidocaine Pain Relief) 4 % Adh..patch, 1 EACH TP BID PRN for PAIN for 10 Days, #10 ADH.PATCH Prov:MARIANO RIOS DO 05/03/24 Ondansetron (Ondansetron Odt) 4 Mg Tab.rapdis, 1 TAB PO Q6HPRN PRN for nause a/vomiting for 4 Days, #10 TAB 0 Refills Prov:MARIANO RIOS DO 03/18/24 Sucralfate (Carafate) 1 Gram Tablet, 1 TAB PO QID for 10 Days, #40 TAB 0 Refills Prov:HERMINIO WILKINS NP 02/27/24 Omeprazole (Omeprazole) 40 Mg Capsule.dr, 1 CAP PO DAILY for 30 Days, #30 CAP 0 Refills Prov:HERMINIO WILKINS NP 02/27/24 Ketorolac Tromethamine (Ketorolac Tromethamine) 10 Mg Tablet, 10 MG PO BID for 5 Days, #10 TAB Prov:BARI AG PA 01/16/24 Methylprednisolone (Medrol) 4 Mg Tab.ds.pk, 4 MG PO AD, #1 UNIT Prov:HERMINIO WILKINS PUBLICATION SPECIALIST 12/27/23 Amoxicillin/Potassium Clav (Amox Tr-K Clv 875-125 mg Tab) 875 Mg-125 Mg Tablet, 1 EACH PO BID for 7 Days, #14 TAB 0 Refills Prov:HERMINIO WILKINS PUBLICATION SPECIALIST 12/27/23 Ondansetron (Ondansetron Odt) 4 Mg Tab.rapdis, 4 MG PO Q6HPRN PRN for nausea, #16 TAB 0 Refills Prov:JU WILLIS MD 12/10/23 Famotidine (Pepcid) 20 Mg Tablet, 20 MG PO BID for 14 Days, #28 TAB 0 Refills Prov:ABNER MURRELL DO 11/16/23 Ondansetron (Ondansetron Odt) 4 Mg Tab.rapdis, 4 MG PO TID PRN for nausea/vomiting for 7 Days, #10 TAB 0 Refills Prov:ABNER MURRELL DO 11/16/23 Ketorolac Tromethamine (Ketorolac Tromethamine) 10 Mg Tablet, 10 MG PO Q6HPRN PRN for PAIN for 7 Days, #28 TAB Prov:ABNER MURRELL DO 11/16/23 Cyclobenzaprine HCl (Flexeril) 10 Mg Tab, 10 MG PO TID PRN for muscle spasm for 7 Days, #21 TAB 0 Refills Prov:ABNER MURRELL DO 11/16/23 Pantoprazole Sodium (Protonix) 20 Mg Tablet.dr, 20 MG PO DAILY, #7 TAB Prov:EDUARD ONOFRE 10/24/23 Ondansetron (Ondansetron Odt) 4 Mg Tab.rapdis, 4 MG PO TID for Vomiting, #10 TAB Prov:MARIANO RIOS DO 10/12/23 Diphenhydramine HCl (Benadryl) 50 Mg Cap, 50 MG PO Q6H for itching/rash, #20 CAP 0 Refills Prov:JU WILLIS MD 09/21/23 Lidocaine (Lidocaine Pain Relief) 4 % Adh..patch, 1 EACH TP DAILY for 5 Days, #5 ADH.PATCH Prov:HUNTER MARIA Doni MONTAÑO 08/02/23 Naproxen (Naproxen) 500 Mg Tablet, 500 MG PO BID for 5 Days, #10 TAB Prov:HUNTER MARIA PA 08/02/23 Cyclobenzaprine HCl (Cyclobenzaprine HCl) 5 Mg Tablet, 5 MG PO DAILYDINNER for 5 Days, #5 TAB Prov:WARREN MARIAROBERT MONTAÑO 08/02/23 Azithromycin (Azithromycin) 250 Mg Tablet, 250 MG PO DAILY, #6 TAB Take 2 now then 1 daily until complete. Prov:SMITH MCMAHON [facility] 05/07/23 D-Methorphan Hb/P-Epd HCl/Bpm (Bromfed Dm Cough Syrup) 2 Mg-30 Mg-10 Mg/5 Ml Syrup, 10 ML PO Q4HPRN PRN for COUGH for 10 Days, #100 ML Prov:SMITH MCMAHON [facility] 05/07/23 Cyclobenzaprine HCl (Cyclobenzaprine HCl) 5 Mg Tablet, 5 MG PO DAILYDINNER, #15 TAB Prov:CHELY RAMIREZ PAC 12/14/22 Naproxen (Naprosyn) 500 Mg Tablet, 500 MG PO BIDPC for 10 Days, #20 TAB 0 Refills Prov:CHELY RAMIREZ PAC 12/13/22 D-Methorphan Hb/P-Epd HCl/Bpm (Bromfed Dm Cough Syrup) 118 Ml Syrup, 10 ML PO Q6HPRN PRN for cough for 5 Days, #200 ML Prov:NOBLE MCCLOUD CERTIFIED GENETIC COUNSELOR 12/10/22 Ondansetron (Ondansetron Odt) 4 Mg Tab.rapdis, 4 MG PO Q6HPRN PRN for nausea/vomiting, #10 TAB 0 Refills Prov:ROCÍO MINAYA NP 12/04/22 Ondansetron (Ondansetron Odt) 4 Mg Tab.rapdis, 4 MG PO TID, #8 TAB Prov:ANNA COELHO MD 12/02/22 Ondansetron (Ondansetron Odt) 4 Mg Tab.rapdis, 4 MG PO TID for 2 Days, #8 TAB Prov:SMITH MCMAHON [facility] 11/25/22 Metoclopramide HCl (Reglan 10 mg Tab) 10 Mg Tablet, 10 MG PO Q6HPRN PRN for nausea, #30 TAB 0 Refills Prov:ROCÍO MINAYA PUBLICATION SPECIALIST 11/22/22 Pantoprazole Sodium (Protonix) 40 Mg Ectab, 40 MG PO DAILY, #14 TAB.EC 0 Refills Prov:ROCÍO MINAYA PUBLICATION SPECIALIST 11/22/22 Cyclobenzaprine HCl (Flexeril) 10 Mg Tab, 10 MG PO TID for 3 Days, #9 TAB Prov:SMITH MCMAHON V CERTIFIED GENETIC COUNSELOR 10/18/22 Ibuprofen (Ibuprofen) 600 Mg Tablet, 600 MG PO Q6H PRN for PAIN, #30 TAB Prov:SMITH MCMAHON V CERTIFIED GENETIC COUNSELOR 10/18/22 Past Medical History Past Medical History: Anxiety, Depression, Seizure Medical History Other: ADHD , GASTRITIS Past Surgical History: None Family History Family History: HTN Social History Social History: Smokers, Lives with family ROS Dictation CONSTITUTIONAL: Negative except for HPI HEAD/FACE: Negative except for HPI EENT: Negative except for HPI RESPIRATORY: Negative except for HPI GASTROINTESTINAL/ABDOMINAL: Negative except for HPI GENITOURINARY: Negative except for HPI MUSCULOSKELETAL: Negative except for HPI INTEGUMENTARY: Negative except for HPI NEUROLOGICAL/PSYCH: Negative except for HPI HEMATOLOGIC/LYMPHATIC: Negative except for HPI All Systems Negative, Except as noted above. 13 point review of systems assessed and all negative except for above. Physical Exam Physical Exam Dictation PHYSICAL EXAM: GENERAL: alert,, awake oriented x 3 HEENT: EOMI, Sclera non icteric, moist mucosa NECK: Supple, no JVD, trachea midline LUNGS: Clear breath sounds bilaterally. No wheezes HEART: Regular rate and rhythm. Normal S1 and S2, without murmurs ABD: Abdomen soft, nontender. Bowel sounds present EXT: No clubbing or cyanosis, NEURO: Alert and oriented to person, follows commands MDM MDM: Patient is a 28-year-old male presenting to the emergency department for evaluation of a cough that has been ongoing for over a week. His girlfriend is sick with similar symptoms. Denies any fever, chills, or any other symptoms at this time. On physical examination the patient is in no acute respiratory distress. Initial vital signs are stable. Patient is afebrile and nontoxic appearing. Chest x-ray was obtained which does show some mild pulmonary congestion. Symptoms consistent with acute bronchitis we will discharged home with supportive management. During my examination the patient was visibly upset about something that had happened at [facility] and EMS earlier today. Otherwise patient is stable for discharge Differential diagnosis: Pneumonia, acute bronchitis, pneumonitis There are no social concerns with this patient. Prescription drug management Prescriptions will include: Azithromycin and Medrol pack Medical management and examination interpretation discussions were had by me with other qualified healthcare professionals as indicated for the patient's care. ED Course Orders Procedure Category Date Status Time Chest 1vw RAD 06/29/24 Taken 23:32 Vital Signs Date Time Temp Pulse Resp B/P (MAP) Pulse Ox O2 Delivery O2 Flow Rate FiO2 06/29/24 23:19 98.1 107 20 130/101 100 Room Air DX & DISP Disposition: Discharge Departure Impression: Primary Impression: Acute bronchitis Condition: Stable Scripts Azithromycin (Azithromycin) 250 Mg Tablet 1 TAB PO AD for 5 Days, #6 TAB 0 Refills 2 the first day followed by 1 for days 2-5 Prov: BARI AG 06/29/24 Methylprednisolone (Medrol) 4 Mg Tab.ds.pk 1 TAB PO AD for 6 Days, #21 TAB 0 Refills 6 on day 1 then reduce by one tablet daily until gone Prov: BARI AG 06/29/24 Referrals: KING RUFFIN MD (PCP) I have reviewed the case, and I agree with, Diagnosis and Plan I performed the substantive portion of the visit. I have reviewed and personally made and approve the management plan that is documented in the note by myself or the JARET. I acknowledge for responsibility for the patient's management plan. BARI AG Jun 29, 2024 23:46
[2024-06-29] MEDS ORDERED: METH4TAB3 PO (23:47)
[2024-06-29] MEDS ORDERED: AZIT250T9 PO (23:47)
--- NOTE | 2024-06-30 08:26 | HMCIMG ---
PORTABLE CHEST RADIOGRAPH INDICATION: cough r/o pna COMPARISON: None FINDINGS: Heart size is normal. The pulmonary vascularity and jet appear normal. No abnormal pulmonary parenchymal opacity or consolidation identified. No significant pleural effusion noted. No pneumothorax detected. IMPRESSION: No radiographic evidence for any acute cardiopulmonary process.
== END 2024-06-30 00:09 | disposition home or self-care (01) ==
LOC: EDH 23:17
DX: J20.9 Acute bronchitis, unspecified (principal); F32.A Depression, unspecified; F41.9 Anxiety disorder, unspecified; F17.200 Nicotine dependence, unspecified, uncomplicated; Z79.899 Other long term (current) drug therapy; Z91.030 Bee allergy status
CPT/HCPCS: 71045; 99283

== ENCOUNTER 2024-07-18 20:35 | Emergency (ER) | payer MEDICAID ==
[~2024-07-18] VITALS: Ht 182.9 cm; Wt 99.8 kg
[~2024-07-18 20:35] MED LIST changes: -NAPR-1023 PO; +NAPR-1194 PO
[2024-07-18 21:29] LABS: BASOPHILS # (AUTO) 0.05 K/uL (0.00-0.20); BASOPHILS % (AUTO) 0.9 % (0.0-5.0); EOSINOPHILS % (AUTO) 1.8 % (0.0-8.0); HEMATOCRIT 37.3 % (42-54); IMMATURE GRANULOCYTE ABSOLUTE 0.01 K/uL (0-1); LYMPHOCYTES # (AUTO) 1.9 K/uL (1.0-4.8); LYMPHOCYTES % (AUTO) 32.9 % (21.0-51.0); MEAN CORPUSCULAR HEMOGLOBIN 29.5 pg (27.0-33.0); MEAN CORPUSCULAR HGB CONC 33.5 g/dL (32.0-36.0); MONOCYTES # (AUTO) 0.4 K/uL (0.1-1.0); MONOCYTES % (AUTO) 7.8 % (3.0-13.0); NEUTROPHILS # (AUTO) 3.2 K/uL (1.8-7.7); NEUTROPHILS % (AUTO) 56.4 % (40.0-77.0); PLATELET COUNT (AUTO) 154 K/uL (130-400); RED BLOOD CELL COUNT(AUTO) 4.24 MIL/uL (4.50-6.20); RED CELL DISTRIBUTION WIDTH 13.2 % (11.0-15.5); WHITE BLOOD COUNT (AUTO) 5.7 K/uL (4.8-10.8)
[2024-07-18 21:44] LABS: CREATININE 0.9 mg/dL (0.5-1.3); POTASSIUM 4.2 mmol/L (3.5-5.1)
[2024-07-18 21:48] LABS: ALBUMIN 3.9 g/dL (3.5-5.0); BILIRUBIN,DIRECT 0.1 mg/dL (0.0-0.3); BILIRUBIN,TOTAL 0.3 mg/dL (0.2-1.0); TOTAL PROTEIN, SERUM 7.1 g/dL (6.0-8.3)
[2024-07-18 23:00] LABS: APPEARANCE,URINE CLEAR (CLEAR); BILIRUBIN,URINE NEGATIVE (NEGATIVE); COLOR,URINE COLORLESS (YELLOW); GLUCOSE, URINE (UA) NEGATIVE (NEGATIVE); KETONES,URINE NEGATIVE (NEGATIVE); LEUKOCYTE ESTERASE ,URINE NEGATIVE Leu/uL (NEGATIVE); NITRATE,URINE NEGATIVE (NEGATIVE); OCCULT BLOOD,URINE NEGATIVE (NEGATIVE); PROTEIN,URINE NEGATIVE (NEGATIVE); UROBILINOGEN,URINE 0.2 mg/dL (0.2-1.0)
[2024-07-18 23:14] LABS: ADD UA MICROSCOPIC NO
[2024-07-19] MEDS: PANTOPrazole 40 MG/VIAL IVP ONE (00:04)
[2024-07-19] MEDS: ondanSETRON 4MG INJ IVP ONE (00:04)
[2024-07-19] MEDS: 0.9%NACL 1000ML 1,000 ML IV ONE (00:05)
[2024-07-19] MEDS ORDERED: PANT20TA18 PO (00:32)
--- NOTE | 2024-07-19 00:32 | ERN ---
ED Note History of Present Illness Stated Complaint: N/V/D Chief Complaint: Nausea,Vomiting,Diarrhea Time Seen by MD: 20:40 Time Seen by Midlevel: 20:40 Dictation: The patient is a 28-year-old with a history of ADHD, depression anxiety who presents to the emergency department with complaints of nausea nonbloody vomiting onset this morning. Patient reports occasional epigastric pain. Denies any fevers, diarrhea or constipation. Allergies: Coded Allergies: bee venom protein (honey bee) (Unverified Allergy, Intermediate, 05/22/24) Home Meds Active Scripts Azithromycin (Azithromycin) 250 Mg Tablet, 1 TAB PO AD for 5 Days, #6 TAB 0 Refills 2 the first day followed by 1 for days 2-5 Prov:BARI AG 06/29/24 Methylprednisolone (Medrol) 4 Mg Tab.ds.pk, 1 TAB PO AD for 6 Days, #21 TAB 0 Refills 6 on day 1 then reduce by one tablet daily until gone Prov:BARI AG 06/29/24 Ibuprofen (Ibuprofen 800 mg Tab) 800 Mg Tab, 800 MG PO Q6H PRN for PAIN, #30 TAB Prov:MARIANO RIOS DO 05/03/24 Orphenadrine Citrate (Orphenadrine Citrate) 100 Mg Tablet.er, 1 TAB PO Q15RRNU PRN for pain for 30 Days, #60 TAB 0 Refills Prov:MARIANO RIOS DO 05/03/24 Lidocaine (Lidocaine Pain Relief) 4 % Adh..patch, 1 EACH TP BID PRN for PAIN for 10 Days, #10 ADH.PATCH Prov:MARIANO RIOS DO 05/03/24 Ondansetron (Ondansetron Odt) 4 Mg Tab.rapdis, 1 TAB PO Q6HPRN PRN for nause a/vomiting for 4 Days, #10 TAB 0 Refills Prov:MARIANO RIOS DO 03/18/24 Sucralfate (Carafate) 1 Gram Tablet, 1 TAB PO QID for 10 Days, #40 TAB 0 Refills Prov:HERMINIO WILKINS NP 02/27/24 Omeprazole (Omeprazole) 40 Mg Capsule.dr, 1 CAP PO DAILY for 30 Days, #30 CAP 0 Refills Prov:HERMINIO WILKINS NP 02/27/24 Ketorolac Tromethamine (Ketorolac Tromethamine) 10 Mg Tablet, 10 MG PO BID for 5 Days, #10 TAB Prov:BARI AG PA 01/16/24 Methylprednisolone (Medrol) 4 Mg Tab.ds.pk, 4 MG PO AD, #1 UNIT Prov:HERMINIO WILKINS VEST BASTER 12/27/23 Amoxicillin/Potassium Clav (Amox Tr-K Clv 875-125 mg Tab) 875 Mg-125 Mg Tablet, 1 EACH PO BID for 7 Days, #14 TAB 0 Refills Prov:HERMINIO WILKINS VEST BASTER 12/27/23 Ondansetron (Ondansetron Odt) 4 Mg Tab.rapdis, 4 MG PO Q6HPRN PRN for nausea, #16 TAB 0 Refills Prov:JU WILLIS MD 12/10/23 Famotidine (Pepcid) 20 Mg Tablet, 20 MG PO BID for 14 Days, #28 TAB 0 Refills Prov:ABNER MURRELL DO 11/16/23 Ondansetron (Ondansetron Odt) 4 Mg Tab.rapdis, 4 MG PO TID PRN for nausea/vomiting for 7 Days, #10 TAB 0 Refills Prov:ABNER MURRELL DO 11/16/23 Ketorolac Tromethamine (Ketorolac Tromethamine) 10 Mg Tablet, 10 MG PO Q6HPRN PRN for PAIN for 7 Days, #28 TAB Prov:ABNER MURRELL DO 11/16/23 Cyclobenzaprine HCl (Flexeril) 10 Mg Tab, 10 MG PO TID PRN for muscle spasm for 7 Days, #21 TAB 0 Refills Prov:ABNER MURRELL DO 11/16/23 Pantoprazole Sodium (Protonix) 20 Mg Tablet.dr, 20 MG PO DAILY, #7 TAB Prov:EDUARD ONOFRE 10/24/23 Ondansetron (Ondansetron Odt) 4 Mg Tab.rapdis, 4 MG PO TID for Vomiting, #10 TAB Prov:MARIANO RIOS DO 10/12/23 Diphenhydramine HCl (Benadryl) 50 Mg Cap, 50 MG PO Q6H for itching/rash, #20 CAP 0 Refills Prov:JU WILLIS MD 09/21/23 Lidocaine (Lidocaine Pain Relief) 4 % Adh..patch, 1 EACH TP DAILY for 5 Days, #5 ADH.PATCH Prov:MORRISMaikJOSEHUNTER MONTAÑO 08/02/23 Naproxen (Naproxen) 500 Mg Tablet, 500 MG PO BID for 5 Days, #10 TAB Prov:LUCHOJOSEHUNTER MONTAÑO 08/02/23 Cyclobenzaprine HCl (Cyclobenzaprine HCl) 5 Mg Tablet, 5 MG PO DAILYDINNER for 5 Days, #5 TAB Prov:LUCHOJOSEHUNTER MONTAÑO 08/02/23 Azithromycin (Azithromycin) 250 Mg Tablet, 250 MG PO DAILY, #6 TAB Take 2 now then 1 daily until complete. Prov:SMITH MCMAHON [facility] 05/07/23 D-Methorphan Hb/P-Epd HCl/Bpm (Bromfed Dm Cough Syrup) 2 Mg-30 Mg-10 Mg/5 Ml Syrup, 10 ML PO Q4HPRN PRN for COUGH for 10 Days, #100 ML Prov:SMITH [facility]MAHON [facility] 05/07/23 Cyclobenzaprine HCl (Cyclobenzaprine HCl) 5 Mg Tablet, 5 MG PO DAILYDINNER, #15 TAB Prov:CHELY RAMIREZ PAC 12/14/22 Naproxen (Naprosyn) 500 Mg Tablet, 500 MG PO BIDPC for 10 Days, #20 TAB 0 Refills Prov:CHELY RAMIREZ PAC 12/13/22 D-Methorphan Hb/P-Epd HCl/Bpm (Bromfed Dm Cough Syrup) 118 Ml Syrup, 10 ML PO Q6HPRN PRN for cough for 5 Days, #200 ML Prov:NOBLE MCCLOUD [employer] 12/10/22 Ondansetron (Ondansetron Odt) 4 Mg Tab.rapdis, 4 MG PO Q6HPRN PRN for nausea/vomiting, #10 TAB 0 Refills Prov:ROCÍO MINAYA NP 12/04/22 Ondansetron (Ondansetron Odt) 4 Mg Tab.rapdis, 4 MG PO TID, #8 TAB Prov:ANNA COELHO MD 12/02/22 Ondansetron (Ondansetron Odt) 4 Mg Tab.rapdis, 4 MG PO TID for 2 Days, #8 TAB Prov:SMITH MCMAHON [facility] 11/25/22 Metoclopramide HCl (Reglan 10 mg Tab) 10 Mg Tablet, 10 MG PO Q6HPRN PRN for nausea, #30 TAB 0 Refills Prov:ROCÍO MINAYA VE[employer]ER 11/22/22 Pantoprazole Sodium (Protonix) 40 Mg Ectab, 40 MG PO DAILY, #14 TAB.EC 0 Refills Prov:ROCÍO MINAYA [employer]ST B[employer]ER 11/22/22 Cyclobenzaprine HCl (Flexeril) 10 Mg Tab, 10 MG PO TID for 3 Days, #9 TAB Prov:SMITH MCMAHON V [employer]PER[employer] 10/18/22 Ibuprofen (Ibuprofen) 600 Mg Tablet, 600 MG PO Q6H PRN for PAIN, #30 TAB Prov:LISANDROSMITH VILLAFUERTE V [employer]HER [employer] SUPERVISOR 10/18/22 Past Medical History Past Medical History: Anxiety, Depression, Seizure Additional Past Medical Hx: ADHD , GASTRITIS Surgical History: None Family History: HTN Social History: Smokers, Lives with family RN Note Reviewed/Agreed w/PFSH: Yes Review of System Dictation Constitutional: Negative for fever,chills, and weight loss Eyes: Negative for injury, pain,redness, and discharge ENT: Negative for injury,pain or swelling Cardiovascular: Negative for chest pain, palpitations, and edema Respiratory: Negative for shortness of breath, cough, and wheezing, Abdomen/GI: Negative for diarrhea, and constipation positive for abdominal pain, nausea, vomiting Back: Negative for injury and pain : Negative for injury, bleeding and discharge MS/Extremity: Negative for injury and deformity Skin: Negative for rash, and discoloration Neuro: Negative for headache, weakness, numbness, tingling, and seizure Psych: Negative for suicide ideation, homicidal ideation, and hallucinations Initial Vital Sign VS Vital Signs Date Time Temp Pulse Resp B/P (MAP) Pulse Ox O2 Delivery O2 Flow Rate FiO2 07/18/24 20:44 98.6 83 18 123/74 99 Room Air 0 Physical Exam Dictation Vital Signs reviewed General Appearance: Alert, oriented x 3, no acute distress, well developed, nourished. Head and Face: non-traumatic. Eyes: PERRL, pink conjunctivas, eyelid no trauma, anterior chamber with arcus senilis. Ears: Pinnas intact and no signs of trauma or erythema ear canals clear and no discharge TM no erythema Nose: No discharge, no bleeding. Oropharynx: Mouth normal, tongue pink. pharynx clear,no erythema, tonsils no exudates, no abscesses noted, mucous membrane moist Neck: Supple, non-tender, no thyromegaly, no masses, no JVD, no bruits Breast:Deferred Chest:No tenderness, no crepitus, no paradoxical movement, no retractions Lungs:Clear, well-ventilated, symmetric, no rales, no wheezing, no rhonchi, no stridor, good breath sounds bilaterally Heart: Regular rate, regular rhythm, no murmur, no gallops Vascular: no peripheral edema, Abdomen: Soft, positive bowel sounds, nondistended, no guarding, nontender, no rebound, no masses no hepatomegaly, no splenomegaly, no Esquivel's sign, no hernias. Rectal: Deferred Genital: Deferred Neurological: Normal speech, motor function intact, sensory function intact Musculoskeletal: Neck nontender, full range of motion, back nontender, full range of motion, Extremities: nontender, full range of motion Skin: Color pink, dry, no turgor, no rash, no lacerations, no abrasions, no contusions. Lymphatic: Deferred Results (Laboratory/Radiology) Laboratory/Radiology Laboratory Tests Test 07/18/24 21:22 07/18/24 22:41 White Blood Count 5.7 K/uL (4.8-10.8) Red Blood Count 4.24 MIL/uL (4.50-6.20) L Hemoglobin 12.5 g/dL (14.0-18.0) L Hematocrit 37.3 % (42-54) L Mean Corpuscular Volume 88.0 fL (79-99) Mean Corpuscular Hemoglobin 29.5 pg (27.0-33.0) Mean Corpuscular Hemoglobin Concent 33.5 g/dL (32.0-36.0) Red Cell Distribution Width 13.2 % (11.0-15.5) Platelet Count 154 K/uL (130-400) Mean Platelet Volume 9.6 fL (7.5-10.5) Immature Granulocyte % (Auto) 0.2 % (0-1) Neutrophils (%) (Auto) 56.4 % (40.0-77.0) Lymphocytes (%) (Auto) 32.9 % (21.0-51.0) Monocytes (%) (Auto) 7.8 % (3.0-13.0) Eosinophils (%) (Auto) 1.8 % (0.0-8.0) Basophils (%) (Auto) 0.9 % (0.0-5.0) Neutrophils # (Auto) 3.2 K/uL (1.8-7.7) Lymphocytes # (Auto) 1.9 K/uL (1.0-4.8) Monocytes # (Auto) 0.4 K/uL (0.1-1.0) Eosinophils # (Auto) 0.10 K/uL (0.00-0.70) Basophils # (Auto) 0.05 K/uL (0.00-0.20) Absolute Immature Granulocyte (auto 0.01 K/uL (0-1) Nucleated Red Blood Cells 0.0 % (0.0-0.19) Sodium Level 140 mmol/L (136-145) Potassium Level 4.2 mmol/L (3.5-5.1) Chloride Level 106 mmol/L (101-111) Carbon Dioxide Level 33 mmol/L (21-32) H Blood Urea Nitrogen 19 mg/dL (7-18) H Creatinine 0.9 mg/dL (0.5-1.3) Glomerular Filtration Rate Calc 121 mL/min (>90) Random Glucose 87 mg/dL (70-105) Total Calcium 9.0 mg/dL (8.5-10.1) Total Bilirubin 0.3 mg/dL (0.2-1.0) Direct Bilirubin 0.1 mg/dL (0.0-0.3) Aspartate Amino Transf (AST/SGOT) 13 U/L (10-37) Alanine Aminotransferase (ALT/SGPT) 21 U/L (12-78) Alkaline Phosphatase 76 U/L (50-136) Total Protein 7.1 g/dL (6.0-8.3) Albumin 3.9 g/dL (3.5-5.0) Lipase 37 U/L (16-77) Urine Color COLORLESS (YELLOW) Urine Appearance CLEAR (CLEAR) Urine pH 7.0 (5.0-8.0) Urine Specific [place] 1.009 (1.001-1.031) Urine Protein NEGATIVE mg/dL (NEGATIVE) Urine Glucose (UA) NEGATIVE mg/dL (NEGATIVE) Urine Ketones NEGATIVE mg/dL (NEGATIVE) Urine Occult Blood NEGATIVE (NEGATIVE) Urine Nitrate NEGATIVE (NEGATIVE) Urine Bilirubin NEGATIVE mg/dL (NEGATIVE) Urine Urobilinogen 0.2 mg/dL (0.2-1.0) Urine Leukocyte Esterase NEGATIVE Nathanael/uL Labs Reviewed?: Yes ED Course ED Course Orders Procedure Category Date Status Time Cbc With Differential LAB 07/18/24 Complete 21:01 Urinalysis Profile LAB 07/18/24 Complete 21:01 0.9%Nacl 1000ml (Ns PHA 07/18/24 Complete 1000ml) 21:30 Ondansetron 4mg Inj PHA 07/18/24 Complete (Zofran 4mg Inj) 21:30 Pantoprazole 40mg Inj PHA 07/18/24 Complete (Protonix 40mg Inj 21:30 Lipase LAB 07/18/24 Complete 21:01 Basic Metabolic Panel LAB 07/18/24 Complete 21: Hepatic Function Panel LAB 07/18/24 Complete 21:01 Current Medications Medications (Trade) Dose Ordered Sig/Lisa Route PRN Reason Start Time Stop Time Status Last Admin Dose Admin Ondansetron HCl (zoFRAN 4MG INJ) 4 mg ONCE ONCE IVP 07/18/24 21:30 07/18/24 21:31 DC 07/19/24 00:04 Pantoprazole Sodium (PROTonix 40MG INJ) 40 mg ONCE ONCE IVP 07/18/24 21:30 07/18/24 21:31 DC 07/19/24 00:04 Sodium Chloride 1,000 ml @ 0 mls/hr ONCE ONCE IV 07/18/24 21:30 07/18/24 21:31 DC 07/19/24 00:05 Vital Signs Date Time Temp Pulse Resp B/P (MAP) Pulse Ox O2 Delivery O2 Flow Rate FiO2 07/18/24 20:44 98.6 83 18 123/74 99 Room Air 0 Medical Decision Making MDM The patient is a 28-year-old with a history of ADHD, depression anxiety who presents to the emergency department with complaints of nausea nonbloody vomiting onset this morning. Patient reports occasional epigastric pain. Denies any fevers, diarrhea or constipation CBC showed no leukocytosis, mild normocytic anemia, chemistry showed no electrolyte imbalance, normal renal function, negative lipase, normal liver enzymes, urinalysis unremarkable. Patient in no acute distress. Patient has been seen here multiple times for the same reason. Patient with a nontender abdomen. We will be discharged to follow up with PCP. Differential diagnosis: Gastroenteritis, gastritis, dehydration, pancreatitis Need for hospitalization: Patient does not meet criteria for hospitalization. There are no social concerns with this patient. DX & DISP Disposition: Discharge Departure Impression: Primary Impression: Acute gastritis Additional Impression: Nausea & vomiting Condition: Stable Scripts Pantoprazole Sodium (Pantoprazole Sodium) 20 Mg Tablet.dr 1 TAB PO DAILY for 30 Days, #30 TAB 0 Refills Prov: RIGO WILLIS 07/19/24 Additional Instructions: Is follow up with your primary doctor in 1-2 days. If symptoms worsen please r eturn to ER. FOLLOW-UP WITH PRIMARY CARE PROVIDER IN 1 TO 2 DAYS. TAKE MEDICATIONS DIRECTED HERE IN THE EMERGENCY ROOM. OKAY TO CONTINUE HOME MEDICATIONS UNLESS OTHERWISE DISCUSSED DURING YOUR VISIT IN THE EMERGENCY ROOM TODAY. RETURN TO YOUR NEAREST EMERGENCY ROOM IF SYMPTOMS WORSEN OR IF THERE IS NO IMPROVEMENT. CALL 911 IF YOU NEED IMMEDIATE ASSISTANCE. TAKE TYLENOL OR MOTRIN [id number] NEEDED AND IF NO CONTRAINDICATIONS ARE PRESENT. INCREASE ORAL HYDRATION. A WOUND CULTURE OR URINE CULTURE WAS ORDERED HERE IN THE EMERGENCY ROOM DEPARTMENT PLEASE FOLLOW-UP WITH PRIMARY CARE PROVIDER AND ADVISE THEM TO GET REPEAT PORTS FROM OUR FACILITY. IF YOU HAD ANY OFELIA WRAP/SPLINTS THAT WERE APPLIED HERE, PLEASE DO NOT REMOVE THEM UNTIL YOU SEE YOUR PRIMARY CARE OR SPECIALTY. Referrals: KING RUFFIN MD (PCP) Time of Disposition: 00:31 I have reviewed the case, and I agree with, Diagnosis and Plan RIGO WILLIS Jul 19, 2024 00:32
[2024-07-19 00:50] VITALS: BP 118/68; PULSE 78; RESP 16; TEMP 98; O2SAT 99
== END 2024-07-19 00:57 | disposition home or self-care (01) ==
LOC: EDH 20:35
DX: K29.00 Acute gastritis without bleeding (principal); R11.2 Nausea with vomiting, unspecified; F17.200 Nicotine dependence, unspecified, uncomplicated; Z79.899 Other long term (current) drug therapy; Z91.030 Bee allergy status
CPT/HCPCS: 99284; 80076; 80048; 83690; 85025; 81003; 36415; 96374; 96361; 96375; J7030; J2405; J2470